=== PATIENT | female | born 1935 | race Caucasian/White ===

== ENCOUNTER 2020-03-16 23:51 | Inpatient (IN) ==
[2020-03-17] MEDS ORDERED: FUROSEMIDE 40 MG/4 ML VIAL IV STA (00:25)
[2020-03-17 00:32] LABS: Basophils # (auto) 0.02 K/uL (0-0.2); Basophils % (auto) 0.2 %; Eosinophils # (auto) 0.54 K/uL (0-0.5); Eosinophils % (auto) 5.2 %; Hematocrit (blood only) 44.4 % (37-47); Hemoglobin 15.2 g/dL (12.0-16.0); Immature Granulocytes # (auto) 0.04 K/uL (0.00-0.02); Immature Granulocytes % (auto) 0.4 %; Lymphocytes # (auto) 3.77 K/uL (1.2-3.4); Lymphocytes % (auto) 36.4 %; Mean Corpuscular Hemoglobin 32.4 pg (25-34); Mean Corpuscular Hgb Conc 34.2 g/dL (32-36); Mean Corpuscular Volume 94.7 fL (80-100); Mean Platelet Volume 9.7 fL (7.4-10.4); Monocytes # (auto) 0.84 K/uL (0.11-0.59); Monocytes % (auto) 8.1 %; Neutrophils # (auto) 5.16 K/uL (1.4-6.5); Neutrophils % (auto) 49.7 %; Platelet Count 196 K/uL (130-400); RDW Coefficient of Variation 12.6 % (11.5-14.5); RDW Standard Deviation 43.7 fL (36.4-46.3); Red Blood Count 4.69 M/uL (4.2-5.4); White Blood Count 10.37 K/uL (4.8-10.8)
[2020-03-17 00:43] LABS: Partial Thromboplastin Time 29.1 Seconds (21.0-31.0); Prothrombin Time 10.6 Seconds (9.0-12.0)
--- NOTE | 2020-03-17 00:55 | Emergency Department Note ---
History of Present Illness General Chief complaint: Cardiac Assessment Stated complaint: COUGH/CHF Time Seen by Provider: 03/16/20 23:53 Source: patient, EMS, RN notes reviewed and old records reviewed Mode of arrival: EMS Limitations: no limitations History of Present Illness Provider complaint: CHF Onset (ago): day(s) 1 Location: chest Maximum Pain Intensity: 0 Current Pain Intensity: 0 Relieved By: + immobilization Exacerbated By: + movement Associated symptoms: + cough and + shortness of breath Treatments prior to arrival: none This is an 84-year-old female who was sent in by her fdc over concerns of the patient is hypoxic at the fdc. Upon arrival to the emergency department the patient is wheezing. She denies any chest pain or shortness of breath. There were no treatments given to the patient prior to arrival. Home Medications Home Medications Medication Instructions Recorded Confirmed Type Delsym Suspension 0 ml PO Q4H PRN 03/17/20 03/17/20 History amlodipine 10 mg PO DAILY 03/17/20 03/17/20 History dextromethorphan-guaifenesin 1 tab PO Q12H 03/17/20 03/17/20 History [Mucinex DM] dextromethorphan-guaifenesin 1 tab PO Q12H PRN 03/17/20 03/17/20 History [Mucinex DM] docusate sodium 100 mg PO BID 03/17/20 03/17/20 History dorzolamide-timolol 1 drp OPR BID 03/17/20 03/17/20 History latanoprost 1 drp OPR HS 03/17/20 03/17/20 History magnesium hydroxide [Milk of 30 ml PO DAILY PRN 03/17/20 03/17/20 History Magnesia] metoprolol tartrate 100 mg PO BID 03/17/20 03/17/20 History multivitamin 1 tab PO DAILY 03/17/20 03/17/20 History multivitamin,rq-jany-luibfmuo 1 tab PO DAILY 03/17/20 03/17/20 History [Therems-M] netarsudil [Rhopressa] 1 drp OPR PM 03/17/20 03/17/20 History omeprazole 20 mg PO HS 03/17/20 03/17/20 History pravastatin 20 mg PO HS 03/17/20 03/17/20 History Allergies Allergy/AdvReac Type Severity Reaction Status Date / Time Iodinated Contrast Media Allergy Intermediate UNKNOWN-MED Verified 03/17/20 00:44 LIST iodine Allergy Intermediate UNKNOWN--MED Verified 03/17/20 00:44 LIST shellfish derived Allergy Intermediate UNKNOWN--MED Verified 03/17/20 00:44 LIST Past Med/Surg History Social History Smoking Status: Never smoker Hx Alcohol Use: No Hx Substance Use: No Preferred Language: Arabic Communication Ability: Effective International Sourcing Manager Required: No Beliefs That Will Affect Care: None Current Living Situation: Personal Care Facility Other Information That Helps Us Care for You: No Feels Safe at Home: Yes Safety Concerns: Feels Safe At This Time Review of Systems A total of 10 systems reviewed and were otherwise negative Physical Exam Vital Signs Vital Signs - 24 hr 03/17/20 00:10 03/17/20 00:31 Temperature 36.8 C Temperature Source Oral Pulse Rate 82 Respiratory Rate 21 Respiratory Depth Normal Blood Pressure 186/86 H Blood Pressure Mean 119 Pulse Oximetry 93 87 L Oxygen Delivery Method Room Air Nasal Cannula Oxygen Flow Rate 0 Sepsis Recent Fever Within 48 Hours No Sepsis New/Unexplained Change in Mental Status No Sepsis Action Taken by Nursing No Action Required Fraction of Inspired Oxygen - Titration 2 Pulse Oximetry Post Tiitration 93 VITAL SIGNS - Vital signs and nursing notes were reviewed. GENERAL - 84-year-old female appearing stated age who is in no acute distress. Communicates well with provider and answers questions appropriately. SKIN - Without rashes. HEAD - NC/AT. EYES - PERRL with EOMI bilaterally. Sclera anicteric. Palpebral conjunctiva pink and moist with no injection noted. EARS - No deformities of external structures noted on gross examination bilaterally. No pain elicited with palpation of the tragus bilaterally. External auditory canals without discharge or otorrhea. Tympanic membranes pearly anderson without retraction or bulging. No fluid or purulent material visualized behind the TM. Handle of malleus, umbo, cone of light, pars tensa/flaccid all easily visualized. NOSE - Midline and without cyanosis. No epistaxis or purulent drainage noted. Septum midline without deviation or septal hematoma noted. MOUTH/OROPHARYNX - Without perioral cyanosis. Buccal mucosa pink and moist and without leukoplakia. Tongue midline with equal elevation of palate bilaterally. No tonsillar hypertrophy, erythema, or exudates noted. dentition noted. NECK - Neck with FROM. Supple to palpation. lymphadenopathy noted. No nuchal rigidity. LUNGS - Chest wall symmetric without accessory muscle use, intercostals retractions, or central cyanosis. Normal vesicular breath sounds CTA B/L. No whe ezes, rales, or rhonchi appreciated. CARDIAC - RRR with S1/S2. No murmur, rubs, or gallops appreciated. ABDOMEN - Abdominal contour without pulsations or visible masses. BS normoactive all four quadrants. No tenderness, palpable masses, hepatosplenomegaly, or ascites noted. EXTREMITIES - No clubbing or peripheral cyanosis. No pretibial edema present. +3/5 radial, posterior tibial, and dorsalis pedis pulses palpated throughout. +5/5 strength noted in UE/LE bilaterally. NEUROLOGIC - Cranial nerves II through XII grossly intact. Sensory intact to light touch throughout. Patellar reflexes +2/4. PSYCH - A&Ox3 and cooperates fully with examiner. Pt is very pleasant and interacts well with examiner. Course Administered Medications Amlodipine Besylate (Amlodipine Besylate 5 Mg Tab) 10 mg PO DAILY STANTON Stop: 04/16/20 08:59 Last Admin: 03/18/20 08:40 Dose: 10 mg Documented by: [id number] Admin: 03/17/20 12:35 Dose: 10 mg Documented by: [id number] Docusate Sodium (Docusate Sodium 100 Mg Cap) 100 mg PO BID STNATON Stop: 04/16/20 08:59 Last Admin: 03/18/20 20:37 Dose: 100 mg Documented by: [id number] Admin: 03/18/20 08:38 Dose: 100 mg Documented by: [id number] Admin: 03/17/20 20:13 Dose: 100 mg Documented by: [id number] Admin: 03/17/20 08:55 Dose: 100 mg Documented by: [id number] Dorzolamide/Timolol (Dorzolamide/Timolol 22.3/6.8mg/Ml 10 Ml Btl) 1 drops OPR BID ST[place]ON Stop: 04/16/20 08:59 Last Admin: 03/18/20 20:32 Dose: 1 drops Documented by: [id number] Admin: 03/18/20 08:38 Dose: 1 drops Documented by: [id number] Admin: 03/17/20 20:13 Dose: 1 drops Documented by: [id number] Admin: 03/17/20 08:56 Dose: 1 drops Documented by: [id number] Doxycycline Hyclate (Doxycycline Hyclate 100 Mg Cap) 100 mg PO BID ST[place]ON Stop: 03/24/20 09:59 Last Admin: 03/18/20 20:35 Dose: 100 mg Documented by: [id number] Admin: 03/18/20 08:41 Dose: 100 mg Documented by: [id number] Admin: 03/17/20 20:15 Dose: 100 mg Documented by: [id number] Admin: 03/17/20 11:29 Dose: 100 mg Documented by: [id number] Enoxaparin Sodium (Enoxaparin Inj 30 Mg/0.3 Ml Syr) 30 mg SQ QAM [place] Stop: 04/16/20 08:59 Last Admin: 03/18/20 08:39 Dose: 30 mg Documented by: [id number] Admin: 03/17/20 08:56 Dose: 30 mg Documented by: [id number] Ipratropium W[place] (Ipratropium [place] Neb Soln 0.02% 2.5 Ml Vial) 0.5 mg INH Q6R [place] Stop: 04/16/20 06:59 Last Admin: 03/19/20 00:08 Dose: 0.5 mg Documented by: [id number] Admin: 03/18/20 19:22 Dose: 0.5 mg Documented by: [id number] Admin: 03/18/20 13:13 Dose: 0.5 mg Documented by: [id number] Admin: 03/18/20 07:14 Dose: 0.5 mg Documented by: [id number] Admin: 03/18/20 01:18 Dose: 0.5 mg Documented by: [id number] Admin: 03/17/20 19:08 Dose: 0.5 mg Documented by: [id number] Admin: 03/17/20 13:13 Dose: 0.5 mg Documented by: [id number] Admin: 03/17/20 07:13 Dose: 0.5 mg Documented by: [id number] Latanoprost (Latanoprost 0.005% Op Soln 2.5 Ml Btl) 1 drops OPR HS [facility] Stop: 04/16/20 20:59 Last Admin: 03/18/20 20:35 Dose: 1 drops Documented by: [id number] Admin: 03/17/20 20:49 Dose: 1 drops Documented by: [id number] Levalbuterol HCl (Levalbuterol 1.25mg/0.5ml Neb) 1.25 mg INH Q6R [place] Stop: 04/16/20 06:59 Last Admin: 03/19/20 00:08 Dose: 1.25 mg Documented by: [id number] Admin: 03/18/20 19:22 Dose: 1.25 mg Documented by: [id number] Admin: 03/18/20 13:13 Dose: 1.25 mg Documented by: [id number] Admin: 03/18/20 07:14 Dose: 1.25 mg Documented by: [id number] Admin: 03/18/20 01:18 Dose: 1.25 mg Documented by: [id number] Admin: 03/17/20 19:08 Dose: 1.25 mg Documented by: [id number] Admin: 03/17/20 13:13 Dose: 1.25 mg Documented by: [id number] Admin: 03/17/20 07:13 Dose: 1.25 mg Documented by: [id number] Metoprolol Tartrate (Metoprolol Tartrate 100 Mg Tab) 100 mg PO BID ST[place] Stop: 04/16/20 08:59 Last Admin: 03/18/20 20:34 Dose: 100 mg Documented by: [id number] Admin: 03/18/20 08:39 Dose: 100 mg Documented by: [id number] Admin: 03/17/20 20:13 Dose: 100 mg Documented by: [id number] Admin: 03/17/20 08:56 Dose: 100 mg Documented by: [id number] Miscellaneous (Netarsudil [Rhopressa]: Order Awaiting Action) 1 ea N/A QS [facility]ON Stop: 04/16/20 07:59 Last Admin: 03/19/20 00:03 Dose: Not Given Documented by: [id number] Admin: 03/18/20 20:33 Dose: Not Given Documented by: [id number] Admin: 03/18/20 08:38 Dose: Not Given Documented by: [id number] Admin: 03/17/20 23:41 Dose: Not Given Documented by: [id number] Admin: 03/17/20 20:07 Dose: Not Given Documented by: [id number] Admin: 03/17/20 08:57 Dose: Not Given Documented by: [id number] Multivitamins (Multivitamin Tab) 1 tab PO DAILY ST[place]ON Stop: 04/16/20 08:59 Last Admin: 03/18/20 08:40 Dose: 1 tab Documented by: [id number] Admin: 03/17/20 08:56 Dose: 1 tab Documented by: [id number] Pantoprazole Sodium (Pantoprazole 40 Mg Tab) 40 mg PO HS ST[place]ON Stop: 04/16/20 20:59 Last Admin: 03/18/20 20:35 Dose: 40 mg Documented by: [id number] Admin: 03/17/20 20:13 Dose: 40 mg Documented by: [id number] Pravastatin Sodium (Pravastatin Sod 20 Mg Tab) 20 mg PO HS [place] Stop: 04/16/20 20:59 Last Admin: 03/18/20 20:34 Dose: 20 mg Documented by: [id number] Admin: 03/17/20 20:15 Dose: 20 mg Documented by: [id number] Prednisone (Prednisone 20 Mg Tab) 20 mg PO DAILY [place] Stop: 03/20/20 09:01 Last Admin: 03/18/20 09:57 Dose: 20 mg Documented by: [id number] Discontinued Medications Albuterol (Albut/Ipratrop 3mg/0.5mg Neb 3 Ml Vial) 3 ml NEB NOW STA Stop: 03/17/20 02:31 Last Admin: 03/17/20 02:55 Dose: 3 ml Documented by: [id number] Amlodipine Besylate (Amlodipine Besylate 5 Mg Tab) 10 mg PO NOW ONE Stop: 03/17/20 03:14 Last Admin: 03/17/20 03:55 Dose: 10 mg Documented by: [id number] Furosemide (Furosemide 40 Mg/4 Ml Vial) 40 mg IV NOW STA Stop: 03/17/20 00:26 Last Admin: 03/17/20 01:10 Dose: 40 mg Documented by: [id number] Piperacillin Sod/Tazobactam Sod (Zosyn) 4.5 gm in 120 mls @ 240 mls/hr IV NOW ONE Stop: 03/17/20 02:48 Last Admin: 03/17/20 02:29 Dose: Not Given Documented by: [id number] Levofloxacin/Dextrose (Levaquin/D5w) 750 mg in 150 mls @ 100 mls/hr IV NOW STA Stop: 03/17/20 03:48 Last Infusion: 03/17/20 03:57 Dose: 0 mls/hr Documented by: [id number] Admin: 03/17/20 02:32 Dose: 100 mls/hr Documented by: [id number] Vancomycin HCl 1,750 mg/ (Sodium Chloride) 535 mls @ 200 mls/hr IV NOW ONE Stop: 03/17/20 04:59 Last Admin: 03/17/20 02:29 Dose: Not Given Documented by: [id number] Dexamethasone (Decadron) 1.5 mls @ 1 mls/min IV NOW STA Stop: 03/17/20 02:30 Last Admin: 03/17/20 03:55 Dose: 1 mls/min Documented by: [id number] Sodium Chloride (Nss 1000ml) 1,000 mls @ 40 mls/hr IV .Q24H ONE Stop: 03/18/20 05:00 Last Infusion: 03/18/20 07:17 Dose: 0 mls/hr Documented by: [id number] Admin: 03/17/20 05:26 Dose: 40 mls/hr Documented by: [id number] Prednisone (Prednisone 10 Mg Tablet) 10 mg PO DAILY ST[place]ON Stop: 03/20/20 09:01 Last Admin: 03/18/20 08:40 Dose: 10 mg Documented by: [id number] Medical Decision Making Differential Diagnosis Reactive airway disease, pneumonia, pneumothorax, COPD, CHF, infections, cardiac ischemia, pulmonary embolism, musculoskeletal, gastrointestinal, as well as other pathologies. Medical Records Attestation: I reviewed the patient's medical records. Home Medications Current Medication List: was personally reviewed by me Laboratory Data Attestation: I reviewed the patient's lab results. Result diagrams: 03/18/20 07:02 03/18/20 07:02 Lab Results 03/17/20 03/17/20 03/17/20 Range/Units 00:10 00:10 00:10 WBC 10.37 (4.8-10.8) K/uL RBC 4.69 (4.2-5.4) M/uL Hgb 15.2 (12.0-16.0) g/dL Hct 44.4 (37-47) % MCV 94.7 (80-100) fL MCH 32.4 (25-34) pg MCHC 34.2 (32-36) g/dL RDW Std Deviation 43.7 (36.4-46.3) fL RDW Coeff of Marlon 12.6 (11.5-14.5) % Plt Count 196 (130-400) K/uL MPV 9.7 (7.4-10.4) fL Immature Gran % (Auto) 0.4 % Neut % (Auto) 49.7 % Lymph % (Auto) 36.4 % Coke % (Auto) 8.1 % Eos % (Auto) 5.2 % Baso % (Auto) 0.2 % Neut # (Auto) 5.16 (1.4-6.5) K/uL Lymph # (Auto) 3.77 H (1.2-3.4) K/uL Coke # (Auto) 0.84 H (0.11-0.59) K/uL Eos # (Auto) 0.54 H (0-0.5) K/uL Baso # (Auto) 0.02 (0-0.2) K/uL Immature Gran # (Auto) 0.04 H (0.00-0.02) K/uL PT 10.6 (9.0-12.0) Seconds INR 1.0 (0.9-1.1) APTT 29.1 (21.0-31.0) Seconds PTT Ratio 1.0 Sodium 140 (136-145) mmol/L Potassium 4.3 (3.5-5.1) mmol/L Chloride 106 (98-107) mmol/L Carbon Dioxide 26 (21-32) mmol/L Anion Gap 8.0 (3-11) BUN 15 (7-18) mg/dl Creatinine 0.96 (0.6-1.2) mg/dl Est Cr Clr Drug Dosing 40.4 ml/min Est GFR ( Amer) 62.1 Est GFR (Non-Af Amer) 53.6 BUN/Creatinine Ratio 16.1 (10-20) Glucose 116 H (70-99) mg/dl Calcium 9.5 (8.5-10.1) mg/dl Magnesium 2.0 (1.8-2.4) mg/dl Total Bilirubin 0.6 (0.2-1) mg/dl AST 22 (15-37) U/L ALT 22 (12-78) U/L Alkaline Phosphatase 68 (45-117) U/L Total Creatine Kinase 71 (26-192) U/L CK-MB (CK-2) < 1.0 (0.5-3.6) ng/ml CK/CKMB % Calc TNP Troponin I < 0.015 (0-0.045) ng/ml NT-Pro-B Natriuret Pep 131 (0-1800) pg/ml Total Protein 7.5 (6.4-8.2) gm/dl Albumin 3.4 (3.4-5.0) gm/dl Globulin 4.1 H (2.5-4.0) gm/dl Albumin/Globulin Ratio 0.8 L (0.9-2) Lipase 179 (73-393) U/L Specimen Hemolysis Urine Color Urine Appearance (Clear) Urine pH (4.5-7.5) Ur Specific Semin[place] (1.000-1.030) Urine Protein (Negative) Urine Glucose (UA) (Negative) Urine Ketones (Negative) Urine Blood (Negative) Urine Nitrite (Negative) Urine Bilirubin (Negative) Urine Urobilinogen (Negative) Ur Leukocyte Esterase (Negative) COVID-19 Eval Order COVID-19 PCR (Negative) 03/17/20 03/17/20 03/17/20 Range/Units 01:06 02:35 02:35 WBC (4.8-10.8) K/uL RBC (4.2-5.4) M/uL Hgb (12.0-16.0) g/dL Hct (37-47) % MCV (80-100) fL MCH (25-34) pg MCHC (32-36) g/dL RDW Std Deviation (36.4-46.3) fL RDW Coeff of Marlon (11.5-14.5) % Plt Count (130-400) K/uL MPV (7.4-10.4) fL Immature Gran % (Auto) % Neut % (Auto) % Lymph % (Auto) % Coke % (Auto) % Eos % (Auto) % Baso % (Auto) % Neut # (Auto) (1.4-6.5) K/uL Lymph # (Auto) (1.2-3.4) K/uL Coke # (Auto) (0.11-0.59) K/uL Eos # (Auto) (0-0.5) K/uL Baso # (Auto) (0-0.2) K/uL Immature Gran # (Auto) (0.00-0.02) K/uL PT (9.0-12.0) Seconds INR (0.9-1.1) APTT (21.0-31.0) Seconds PTT Ratio Sodium (136-145) mmol/L Potassium (3.5-5.1) mmol/L Chloride (98-107) mmol/L Carbon Dioxide (21-32) mmol/L Anion Gap (3-11) BUN (7-18) mg/dl Creatinine (0.6-1.2) mg/dl Est Cr Clr Drug Dosing ml/min Est GFR ( Amer) Est GFR (Non-Af Amer) BUN/Creatinine Ratio (10-20) Glucose (70-99) mg/dl Calcium (8.5-10.1) mg/dl Magnesium (1.8-2.4) mg/dl Total Bilirubin (0.2-1) mg/dl AST (15-37) U/L ALT (12-78) U/L Alkaline Phosphatase (45-117) U/L Total Creatine Kinase (26-192) U/L CK-MB (CK-2) (0.5-3.6) ng/ml CK/CKMB % Calc Troponin I (0-0.045) ng/ml NT-Pro-B Natriuret Pep (0-1800) pg/ml Total Protein (6.4-8.2) gm/dl Albumin (3.4-5.0) gm/dl Globulin (2.5-4.0) gm/dl Albumin/Globulin Ratio (0.9-2) Lipase (73-393) U/L Specimen Hemolysis Urine Color Yellow Urine Appearance Clear (Clear) Urine pH 6.5 (4.5-7.5) Ur Specific [place] 1.012 (1.000-1.030) Urine Protein Negative (Negative) Urine Glucose (UA) Negative (Negative) Urine Ketones Negative (Negative) Urine Blood Negative (Negative) Urine Nitrite Negative (Negative) Urine Bilirubin Negative (Negative) Urine Urobilinogen Negative (Negative) Ur Leukocyte Esterase Negative (Negative) COVID-19 Eval Order Covid19 Done at [facility] COVID-19 PCR NEGATIVE (Negative) Imaging Data Attestation: I personally reviewed and interpreted this imaging study as follows : My Impression: 1 view the chest was interpreted by me shows pulmonary edema present at the lung bases. No evidence of pneumonia Radiologist's Impression: 18 Diagnostics DATE TYPE STATUS REF RANGE/AUTHOR Hx 03/17/20 00:55 YulianaAndrew norris 03/17/20 00:25 Andrew Deluna Eleanor J 84, F0 1935 ADM IN, 2W W252 -1 5ft 76.7kg BMI: 33.0kg/m Search Chart UNKNOWN-MED LIST UNKNOWN--MED LIST UNKNOWN--MED LIST 03/17/20 00:10 ONSET Today 04:04 NF - Not included in interaction checking Trop I WBC Hb Hct Plt PT INR PTT BUN Cr Na K Glu Mg Total Bili Lipase NORMA HILLIARD 84 F 1935 [facility], [place] [phone] CT Scan Report Patient: NORMA HILLIARD Date: 03/17/20 MR#: [id number]: [id number] [facility] Acct ID:[id number]: Date: 1935[facility] Zip: [place] [address] Age: 84Location: 2W Sex: FRoom/Bed: [facility] Att Phy: Chacorta Westfall, MDDiagnosis: RESP FAILURE,COVID NEG,DC ISOL Linda Phy: Dwayne Mojica,Personal Care,IncService Date: 03/17/20 Fam Phy:Interpreting Phy: Andrew Deluna MD Admit Phy: Gage Lopez MD Ordering Phy: Sean Mon MD cc: ~ CT chest wo con CLINICAL HISTORY: Axial COMPARISON STUDY: Chest x-ray dated 03/17/2020 CT DOSE: 683.71 mGy.cm TECHNIQUE: CT of the thorax was performed from the thoracic inlet to the lung bases. Images are reviewed in the axial, sagittal, and coronal planes. IV contrast was not administered for this examination. A dose lowering technique was utilized adhering to the principles of ALARA. FINDINGS: Thyroid: Imaged portions of the thyroid gland are normal in appearance. Thoracic aorta: The thoracic aorta is normal in course and caliber, noting standard 3 vessel arch anatomy. Heart: The heart is normal in size and configuration, without pericardial effusion. Lungs and pleural spaces: There is respiratory motion artifact. There are minimal groundglass opacities within the right upper lobe. There is no lobar consolidation. There is evidence for tracheomalacia with narrowing of the AP diameter of the trachea. There is mild diffuse central bronchial wall thickening. There are no significant pleural effusions. There are minor tree-in-bud opacities within the right lower lobe, likely postinflammatory Mediastinum: There is no evidence of pathologic mediastinal lymphadenopathy Greer: There is no evidence of pathologic hilar adenopathy given the limitations of a noncontrast study. Axilla: There is a left axillary lymphadenopathy. Upper abdomen: Partially visualized upper abdominal viscera is within normal limits. Skeletal structures: There are no lytic or blastic osseous lesions. IMPRESSION: 1. Motion degraded study 2. Tracheomalacia 3. Mild central bronchial wall thickening 4. Minor tree-in-bud opacities in the right lower lobe likely postinflammatory 5. Minor right upper lobe groundglass opacities 6. Enlarged left axillary lymph node ACT 112: Negative or not required by law. Electronically signed by: Andrew Deluna M.D. 03/17/2020 8:46 AM Dictated: 03/17/20 08 Transcribed: 03/17/20 08 [place], [place] [phone] XRay Report Patient: NORMA HILLIARD Date: 03/17/20 MR#: [id number]: [id number] [facility] Acct ID:[id number]: [facility] Zip[facility] [place] [address] Age: 84Location: 2W Sex: FRoom/Bed: W256-2 Att Phy: Chacorta Westfall, MDDiagnosis: RESP FAILURE,COVID NEG,DC ISOL Linda Phy: Dwayne Mojica,Personal Care,IncService Date: 03/17/20 Fam Phy:Interpreting Phy: Andrew Deluna MD Admit Phy: Gage Lopez MD Ordering Phy: Sean Mon MD cc: ~ XR chest 1V portable CLINICAL HISTORY: Atypical chest pain COMPARISON STUDY: 01/13/2010 FINDINGS: The heart is the upper limits of normal in size. There is mild elevation of interstitium raising the possibility of mild pulmonary vascular congestion. There is no lobar consolidation. There are no pleural effusions.[ IMPRESSION: 1. Mild interstitial prominence. Clinical correlation in regards to mild pulmonary vascular congestion is recommended. No evidence of focal pulmonary consolidation ACT 112: Negative or not required by law. Electronically signed by: Andrew Deluna M.D. 03/17/2020 8:05 AM Dictated: 03/17/20803 Transcribed: 03/17/20803 ECG Data Attestation: I personally reviewed and interpreted this ECG as follows: Indication: + SOB/dyspnea Rate (beats per minute): 78 Rhythm: + normal sinus ECG Intervals/blocks: + Left bundle branch block ECG ST segments: no ST depression and no ST elevation Comparison ECG Date: from (09/12/2014) Change: no significant change MDM Narrative Patient was seen and evaluated as above in room C3. Review was performed of nursing notes and vital signs. I did review pertinent previous visits and patient history. After obtaining a thorough history and physical examination the above work up was performed. This is an 84-year-old female who presents the emergency department complaining of shortness of breath. It is felt that the patient is having a COPD exacerbation therefore she was given Solu-Medrol as well as breathing treatments. The patient presents during a period of high-volume and high acuity. She remains on oxygen therefore I did discuss the case with the hosp italist service who did agree to meet the patient. Patient is in agreement with the treatment plan. An order was placed for continuous cardiac monitoring. The monitor shows a rate of 86 with Normal Sinus rhythm. The patient was evaluated during the global COVID-19 pandemic, and that diagnosi s was suspected/considered upon their initial presentation. Their evaluation, treatment and testing was consistent with current guidelines for patients who present with complaints or symptoms that may be related to COVID-19. Impression & Plan Acute hypoxemic respiratory failure, Elevated troponin, Urinary tract infection, Intractable vomiting Discharge Plan Visit Data Chief Complaint: Cardiac Assessment Stated Complaint: COUGH/CHF ED Provider: Sean Mon Discharge Problem: Acute hypoxemic respiratory failure, Elevated troponin, Urinary tract inf ection, Intractable vomiting Patient Disposition: Admitted As Inpatient Discharge Instructions Interventions: ED Discharge Assessment Last Done: 03/17/20 04:12
[2020-03-17 01:08] LABS: Alanine Aminotransferase 22 U/L (12-78); Albumin Globulin Ratio 0.8 (0.9-2); Albumin Level 3.4 gm/dl (3.4-5.0); Alkaline Phosphatase 68 U/L (45-117); BUN Creatinine Ratio 16.1 (10-20); Bilirubin,Total 0.6 mg/dl (0.2-1); Blood Urea Nitrogen 15 mg/dl (7-18); Calcium 9.5 mg/dl (8.5-10.1); Carbon Dioxide 26 mmol/L (21-32); Chloride 106 mmol/L (98-107); Creatine Kinase MB < 1.0 ng/ml (0.5-3.6); Creatinine Clr Calc Pharmacy 40.4 ml/min; Est GFR (African American) 62.1; Est GFR (Non-African American) 53.6; Globulin 4.1 gm/dl (2.5-4.0); Glucose 116 mg/dl (70-99); Lipase 179 U/L (73-393); NT Pro B Type Natriuretic Pept 131 pg/ml (0-1800); Sodium 140 mmol/L (136-145); Total Protein 7.5 gm/dl (6.4-8.2); Troponin I < 0.015 ng/ml (0-0.045)
[2020-03-17 01:20] LABS: Potassium 4.3 mmol/L (3.5-5.1)
[2020-03-17 01:23] LABS: Bilirubin Urine Negative (Negative); Blood Urine Negative (Negative); Color Urine Yellow; Glucose Urine UA Negative (Negative); Ketones Urine Negative (Negative); Leukocyte Esterase Urine Negative (Negative); Nitrite Urine Negative (Negative); Protein Urine Negative (Negative); Specific Gravity Urine 1.012 (1.000-1.030); Urobilinogen Urine Negative (Negative); pH Urine 6.5 (4.5-7.5)
[2020-03-17 01:29] LABS: Appearance Urine Clear (Clear)
[2020-03-17 01:37] LABS: Aspartate Aminotransferase 22 U/L (15-37); Creatine Kinase 71 U/L (26-192)
[2020-03-17] MEDS ORDERED: LEVOFLOXACIN/D5W 750 MG/150 ML BAG IV STA (02:19)
[2020-03-17] MEDS ORDERED: PIPERACILLIN/TAZOBACTAM 4.5 GM/120 ML BAG IV ONE (02:19)
[2020-03-17] MEDS ORDERED: VANCOMYCIN CONSULT ACTIVE PRN (02:19)
[2020-03-17] MEDS ORDERED: PIPERACILL/TAZOBAC CONSULT ACTIVE PRN (02:19)
[2020-03-17] MEDS ORDERED: VANCOMYCIN HCL 1,750 MG in SODIUM CHLORIDE 0.9% 500 ML IV ONE (02:19)
[2020-03-17] MEDS ORDERED: dexAMETHasone 1.5 ML IV STA (02:29)
[2020-03-17] MEDS ORDERED: ALBUT/IPRATROP 3MG/0.5MG NEB 3 ML VIAL NEB STA (02:30)
[2020-03-17] MEDS ORDERED: AMLODIPINE BESYLATE 5 MG TAB PO ONE (03:13)
--- NOTE | 2020-03-17 03:14 | History & Physical Report ---
Date of Service March 17, 2020 Assessment & Plan (1) Acute hypoxemic respiratory failure: Secondary to viral bronchitis No sepsis hypertension elevated secondary to illness, anxiety hyperlipidemia on statin Rx Incidental finding of left axillary adenopathy on CT ? Breast cancer recurrence hx breast cancer status post surgery chemotherapy Medical telemetry Supplemental O2 Baseline ABG Decadron, nebs stat for viral bronchitis presenting with bronchospasm and hypoxemia Follow official CT read regarding left axillary adenopathy and arrange follow-up with patient [facility] oncologist (Dr. Bunch) if work-up indicated and patient interested. PT OT eval DVT prophylaxis. Lovenox subcu DNR Patient's niece requesting updates for providers. Ms. whittington, contact #[phone]. Text document was generated using [email or web address] voice recognition software. It may contain grammatical or spelling errors. Kindly contact undersigned for clarification of any documentation item in question. History of Present Illness Chief Complaint: Low oxygen, CHF on x-ray Primary Care Provider: Dr. Guzman History obtained from patient, family, and records. Medical history significant for hypertension, hyperlipidemia, chronic LBBB, breast cancer status post surgery chemotherapy, paraproteinemia as per records, PVD as per records, history of poliomyelitis. Last confinement September 2014 for generalized weakness and UTI. Last week patient developed cough symptoms productive of white sputum attributed to possible sinusitis. Worsening symptoms in the last few days with shortness of breath. No fever, no chills, no chest pain. Denies unusual fluid retention or leg swelling. Yesterday patient noted by personal senior living provider to have a lot of wheezing on auscultation. Noted to be hypoxemic at personal senior living. Outpatient CXR showed mild CHF. Patient sent to the ER for evaluation. IV Lasix given at the ER for possible CHF. Levaquin given at the ER. Medical History as above Surgical History : Bilateral mastectomy, cataract surgery, hip replacement Family History : Heart disease, skin cancer Personal/Social history : Non-smoker, no EtOH intake, retired business banker, personal-senior living resident Allergies Allergy/AdvReac Type Severity Reaction Status Date / Time Iodinated Contrast Media Allergy Intermediate UNKNOWN-MED Verified 03/17/20 00:44 LIST iodine Allergy Intermediate UNKNOWN--MED Verified 03/17/20 00:44 LIST shellfish derived Allergy Intermediate UNKNOWN--MED Verified 03/17/20 00:44 LIST Home Medications Home Medications Medication Instructions Recorded Confirmed Type Delsym Suspension 0 ml PO Q4H PRN 03/17/20 03/17/20 History amlodipine 10 mg PO DAILY 03/17/20 03/17/20 History dextromethorphan-guaifenesin 1 tab PO Q12H 03/17/20 03/17/20 History [Mucinex DM] dextromethorphan-guaifenesin 1 tab PO Q12H PRN 03/17/20 03/17/20 History [Mucinex DM] docusate sodium 100 mg PO BID 03/17/20 03/17/20 History dorzolamide-timolol 1 drp OPR BID 03/17/20 03/17/20 History latanoprost 1 drp OPR HS 03/17/20 03/17/20 History magnesium hydroxide [Milk of 30 ml PO DAILY PRN 03/17/20 03/17/20 History Magnesia] metoprolol tartrate 100 mg PO BID 03/17/20 03/17/20 History multivitamin 1 tab PO DAILY 03/17/20 03/17/20 History multivitamin,xx-zakq-blbynwny 1 tab PO DAILY 03/17/20 03/17/20 History [Therems-M] netarsudil [Rhopressa] 1 drp OPR PM 03/17/20 03/17/20 History omeprazole 20 mg PO HS 03/17/20 03/17/20 History pravastatin 20 mg PO HS 03/17/20 03/17/20 History Past Med/Surg History Social History Smoking Status: Never smoker Hx Alcohol Use: No Hx Substance Use: No Preferred Language: [place] Islander Communication Ability: Effective Accounting Software Specialist Required: No Beliefs That Will Affect Care: None Current Living Situation: Personal Care Facility Other Information That Helps Us Care for You: No Feels Safe at Home: Yes Safety Concerns: Feels Safe At This Time Review of Systems Review of Systems: As per HPI, all 10 systems reviewed, all other ROS negative Physical Exam Physical Exam: GENERAL: Slightly uncomfortable, slightly anxious, obese, no respiratory distress SKIN: Normal color, warm HEENT: Bespectacled, [place] palpebral conjunctivae, no ptosis, dry buccal mucosa, nasal cannula in place NECK : Supple, short neck, no tenderness CHEST : Decreased breath sounds, occasional expiratory wheezes, no tenderness HEART : RRR, no obvious murmurs ABDOMEN: Some distention, nontender EXTREMITIES : No LE swelling, no LE tenderness NEUROLOGIC : Coherent, no facial asymmetry, no other gross focality Results & Data Results & Data ([facility]) Vital Signs (Past 12 Hours) Vital Signs Temp Pulse Pulse Resp BP Pulse Ox 03/17/20 02:56 76 18 96 03/17/20 02:31 71 15 172/74 H 96 03/17/20 01:30 72 18 148/75 H 95 03/17/20 01:01 82 19 176/99 H 95 03/17/20 00:31 87 L 03/17/20 00:30 74 25 H 158/88 H 96 03/17/20 00:10 36.8 C 82 21 186/86 H 93 03/17/20 00:00 82 22 177/86 H 96 Laboratory Results Laboratory Results WBC 10.37 K/uL (4.8-10.8) 03/17/20 00:10 RBC 4.69 M/uL (4.2-5.4) 03/17/20 00:10 Hgb 15.2 g/dL (12.0-16.0) 03/17/20 00:10 Hct 44.4 % (37-47) 03/17/20 00:10 MCV 94.7 fL (80-100) 03/17/20 00:10 MCH 32.4 pg (25-34) 03/17/20 00:10 MCHC 34.2 g/dL (32-36) 03/17/20 00:10 RDW Std Deviation 43.7 fL (36.4-46.3) 03/17/20 00:10 RDW Coeff of Marlon 12.6 % (11.5-14.5) 03/17/20 00:10 Plt Count 196 K/uL (130-400) 03/17/20 00:10 MPV 9.7 fL (7.4-10.4) 03/17/20 00:10 Immature Gran % (Auto) 0.4 % 03/17/20 00:10 Neut % (Auto) 49.7 % 03/17/20 00:10 Lymph % (Auto) 36.4 % 03/17/20 00:10 [place] % (Auto) 8.1 % 03/17/20 00:10 Eos % (Auto) 5.2 % 03/17/20 00:10 Baso % (Auto) 0.2 % 03/17/20 00:10 Neut # (Auto) 5.16 K/uL (1.4-6.5) 03/17/20 00:10 Lymph # (Auto) 3.77 K/uL (1.2-3.4) H 03/17/20 00:10 [place] # (Auto) 0.84 K/uL (0.11-0.59) H 03/17/20 00:10 Eos # (Auto) 0.54 K/uL (0-0.5) H 03/17/20 00:10 Baso # (Auto) 0.02 K/uL (0-0.2) 03/17/20 00:10 Immature Gran # (Auto) 0.04 K/uL (0.00-0.02) H 03/17/20 00:10 PT 10.6 Seconds (9.0-12.0) 03/17/20 00:10 INR 1.0 (0.9-1.1) 03/17/20 00:10 APTT 29.1 Seconds (21.0-31.0) 03/17/20 00:10 PTT Ratio 1.0 03/17/20 00:10 Sodium 140 mmol/L (136-145) 03/17/20 00:10 Potassium 4.3 mmol/L (3.5-5.1) 03/17/20 00:10 Chloride 106 mmol/L (98-107) 03/17/20 00:10 Carbon Dioxide 26 mmol/L (21-32) 03/17/20 00:10 Anion Gap 8.0 (3-11) 03/17/20 00:10 BUN 15 mg/dl (7-18) 03/17/20 00:10 Creatinine 0.96 mg/dl (0.6-1.2) 03/17/20 00:10 Est Cr Clr Drug Dosing 40.4 ml/min 03/17/20 00:10 Est GFR ( Amer) 62.1 03/17/20 00:10 Est GFR (Non-Af Amer) 53.6 03/17/20 00:10 BUN/Creatinine Ratio 16.1 (10-20) 03/17/20 00:10 Glucose 116 mg/dl (70-99) H 03/17/20 00:10 Calcium 9.5 mg/dl (8.5-10.1) 03/17/20 00:10 Total Bilirubin 0.6 mg/dl (0.2-1) 03/17/20 00:10 AST 22 U/L (15-37) 03/17/20 00:10 ALT 22 U/L (12-78) 03/17/20 00:10 Alkaline Phosphatase 68 U/L (45-117) 03/17/20 00:10 Total Creatine Kinase 71 U/L (26-192) 03/17/20 00:10 CK-MB (CK-2) < 1.0 ng/ml (0.5-3.6) 03/17/20 00:10 CK/CKMB % Calc TNP 03/17/20 00:10 Troponin I < 0.015 ng/ml (0-0.045) 03/17/20 00:10 NT-Pro-B Natriuret Pep 131 pg/ml (0-1800) 03/17/20 00:10 Total Protein 7.5 gm/dl (6.4-8.2) 03/17/20 00:10 Albumin 3.4 gm/dl (3.4-5.0) 03/17/20 00:10 Globulin 4.1 gm/dl (2.5-4.0) H 03/17/20 00:10 Albumin/Globulin Ratio 0.8 (0.9-2) L 03/17/20 00:10 Lipase 179 U/L (73-393) 03/17/20 00:10 Specimen Hemolysis 03/17/20 00:10 Urine Color Yellow 03/17/20 01:06 Urine Appearance Clear (Clear) 03/17/20 01:06 Urine pH 6.5 (4.5-7.5) 03/17/20 01:06 Ur Specific [place] 1.012 (1.000-1.030) 03/17/20 01:06 Urine Protein Negative (Negative) 03/17/20 01:06 Urine Glucose (UA) Negative (Negative) 03/17/20 01:06 Urine Ketones Negative (Negative) 03/17/20 01:06 Urine Blood Negative (Negative) 03/17/20 01:06 Urine Nitrite Negative (Negative) 03/17/20 01:06 Urine Bilirubin Negative (Negative) 03/17/20 01:06 Urine Urobilinogen Negative (Negative) 03/17/20 01:06 Ur Leukocyte Esterase Negative (Negative) 03/17/20 01:06 COVID-19 Eval Order Covid19 Done at [facility] 03/17/20 02:[address] chest initial read: No focal consolidation. Small hiatal hernia. Mild volume loss of the lungs. Mildly enlarged left axillary lymph node measuring 1.4 cm. Consider nonemergent diagnostic breast evaluation if clinically warranted. EKG as per my interpretation : Rate 80, NSR, LBBB,
[2020-03-17] MEDS ORDERED: PROMETHAZINE HCL 12.5 MG in SODIUM CHLORIDE 0.9% 50 ML IV PRN (05:01)
[2020-03-17] MEDS ORDERED: TRAMADOL HCL 50 MG TABLET PO PRN (05:01)
[2020-03-17] MEDS ORDERED: ACETAMINOPHEN 325 MG TAB PO PRN (05:01)
[2020-03-17] MEDS ORDERED: SODIUM CHLORIDE 0.9% 1000ML 1,000 ML IV ONE (05:01)
[2020-03-17] MEDS ORDERED: MAGNESIUM HYDROXIDE SUSP 30 ML UDC PO PRN (05:01)
[2020-03-17 05:44] LABS: Base Excess ABG 2.8 mEq/L (-9-1.8); HCO3 ABG 28 mmol/L (19-24); PCO2 ABG 42 mmHg (35-46); PO2 ABG 72 mmHg (80-95); pH ABG 7.43 (7.35-7.45)
[2020-03-17 05:48] LABS: Allen Test Pos (Pos)
[2020-03-17] MEDS ORDERED: XOPENEX/ATROVENT 1.25mg/0.5MG NEB COMBO NEB SCH (07:00)
[2020-03-17] MEDS: LEVALBUTEROL 1.25MG/0.5ML NEB INH SCH ×3 (07:13→19:08)
[2020-03-17] MEDS: IPRATROPIUM BROMIDE NEB SOLN 0.02% 2.5 ML VIAL INH SCH ×3 (07:13→19:08)
--- NOTE | 2020-03-17 08:06 | XRay Report ---
XR chest 1V portable CLINICAL HISTORY: Atypical chest pain COMPARISON STUDY: 01/13/2010 FINDINGS: The heart is the upper limits of normal in size. There is mild elevation of interstitium ra ising the possibility of mild pulmonary vascular congestion. There is no lobar consolidation. There a re no pleural effusions.[ IMPRESSION: 1. Mild interstitial prominence. Clinical correlation in regards to mild pulmonary vascular congestio n is recommended. No evidence of focal pulmonary consolidation ACT 112: Negative or not required by law. Electronically signed by: Andrew Deluna M.D. 03/17/2020 8:05 AM
--- NOTE | 2020-03-17 08:48 | CT Scan Report ---
CT chest wo con CLINICAL HISTORY: Axial COMPARISON STUDY: Chest x-ray dated 03/17/2020 CT DOSE: 683.71 mGy.cm TECHNIQUE: CT of the thorax was performed from the thoracic inlet to the lung bases. Images are revi ewed in the axial, sagittal, and coronal planes. IV contrast was not administered for this examinatio n. A dose lowering technique was utilized adhering to the principles of ALARA. FINDINGS: Thyroid: Imaged portions of the thyroid gland are normal in appearance. Thoracic aorta: The thoracic aorta is normal in course and caliber, noting standard 3 vessel arch mo[place]. Heart: The heart is normal in size and configuration, without pericardial effusion. Lungs and pleural spaces: There is respiratory motion artifact. There are minimal groundglass opaciti es within the right upper lobe. There is no lobar consolidation. There is evidence for tracheomalacia with narrowing of the AP diameter of the trachea. There is mild diffuse central bronchial wall thick ening. There are no significant pleural effusions. There are minor tree-in-bud opacities within the r ight lower lobe, likely postinflammatory Mediastinum: There is no evidence of pathologic mediastinal lymphadenopathy [place]: There is no evidence of pathologic hilar adenopathy given the limitations of a noncontrast stud y. Axilla: There is a left axillary lymphadenopathy. Upper abdomen: Partially visualized upper abdominal viscera is within normal limits. Skeletal structures: There are no lytic or blastic osseous lesions. IMPRESSION: 1. Motion degraded study 2. Tracheomalacia 3. Mild central bronchial wall thickening 4. Minor tree-in-bud opacities in the right lower lobe likely postinflammatory 5. Minor right upper lobe groundglass opacities 6. Enlarged left axillary lymph node ACT 112: Negative or not required by law. Electronically signed by: Andrew Deluna M.D. 03/17/2020 8:46 AM
[2020-03-17] MEDS: DOCUSATE SODIUM 100 MG CAP PO SCH ×2 (08:55→20:13)
[2020-03-17] MEDS: ENOXAPARIN INJ 30 MG/0.3 ML SYR SQ SCH (08:56)
[2020-03-17] MEDS: DORZOLAMIDE/TIMOLOL 22.3/6.8MG/ML 10 ML BTL OPR SCH ×2 (08:56→20:13)
[2020-03-17] MEDS: METOPROLOL TARTRATE 100 MG TAB PO SCH ×2 (08:56→20:13)
[2020-03-17] MEDS: MULTIVITAMIN TAB PO SCH (08:56)
--- NOTE | 2020-03-17 10:20 | Electrocardiogram Report ---
Test Reason : Blood Pressure : / mmHG Vent. Rate : 078 BPM Atrial Rate : 078 BPM P-R Int : 192 ms QRS Dur : 144 ms QT Int : 424 ms P-R-T Axes : 064 026 096 degrees QTc Int : 483 ms Normal sinus rhythm Left bundle branch block Abnormal ECG When compared with ECG of 12-SEP-2014 20:09, No significant change was found Confirmed by Sam Spicer ([id number]) on 03/17/2020 10:20:11 AM Referred By: Jazmín Rice [place] Confirmed By:Sam Spicer
[2020-03-17] MEDS: DOXYCYCLINE HYCLATE 100 MG CAP PO SCH ×2 (11:29→20:15)
[2020-03-17 11:52] LABS: Adenovirus PCR Not Detected (NotDetected); Bordetella parapertussis PCR Not Detected (NotDetected); Bordetella pertussis PCR Not Detected (NotDetected); Chlamydia pneumoniae PCR Not Detected (NotDetected); Coronavirus 229E PCR Not Detected (NotDetected); Coronavirus CoV-2 (COVID19)PCR Not Detected (NotDetected); Coronavirus HKU1 PCR Not Detected (NotDetected); Coronavirus NL63 PCR Not Detected (NotDetected); Coronavirus OC43PCR Not Detected (NotDetected); Human Metapneumovirus PCR Not Detected (NotDetected); Influenza A PCR Not Detected (NotDetected); Influenza B PCR Not Detected (NotDetected); Mycoplasma pneumoniae PCR Not Detected (NotDetected); Parainfluenza Virus 1 PCR Not Detected (NotDetected); Parainfluenza Virus 2 PCR Not Detected (NotDetected); Parainfluenza Virus 3 PCR Not Detected (NotDetected); Parainfluenza Virus 4 PCR Not Detected (NotDetected); Respiratory Syncytial VirusPCR Not Detected (NotDetected)
[2020-03-17 11:57] LABS: Rhinovirus/Enterovirus PCR DETECTED (NotDetected)
[2020-03-17] MEDS: AMLODIPINE BESYLATE 5 MG TAB PO SCH (12:35)
--- NOTE | 2020-03-17 14:52 | Hospitalist Progress Note ---
Date of Service March 17, 2020 Assessment & Plan (1) Acute hypoxemic respiratory failure: Acute bronchitis--viral No signs of sepsis Hypoxia --CT chest:Motion degraded study. Tracheomalacia. Mild central bronchial wall thickening. Minor tree-in-bud opacities in the right lower lobe likely postinflammatory. Minor right upper lobe groundglass opacities. Enlarged left axillary lymph node --Biofire: Rhino/Entero Virus --COVID-19 PCR: Negative --Normal Procalcitonin -- Received Dexamethasone --Started on Doxycycline --Continue Low dose steroids --Wean off of supplemental oxygen as able Hypertension Bp slightly elevated Continue amlodipine, metoprolol Monitor Hyperlipidemia Continue Statin Left axillary adenopathy on CT H/O breast Cancer S/P chemotherapy, surgery Informed patient about CT findings Prefers no further investigations Advised patient to follow-up as outpatient DVT Px: Lovenox SQ Code Status DNI/DNR Disposition PT/OT prior to discharge Admission and Anticipated Discharge Date Admission Date: March 17, 2020 Subjective Patient is seen and examined at bedside Reports cough Denies shortness of breath, dizziness, nausea, abdominal pain, chest pain Requiring minimal supplemental oxygen to maintain saturations Offers no other complaints Review of Systems Review of Systems: All systems reviewed & are unremarkable except as noted in HPI & below Physical Exam Physical Exam: Physical Exam: Vitals signs as noted above General Appearance:Elderly, no apparent distress Head: normocephalic, Atraumatic Eyes: normal inspection, EOMI Neck: supple, Trachea midline Respiratory/Chest: Decreased breath sounds, +Basal crackles Cardiovascular: S1, S2, No murmur Abdomen/GI:Soft, Non tender, Bowel sounds present Extremities/Musculoskelatal:normal inspection, R leg Polio, Left LE edema Neurologic/Psych:AAOX3, grossly no focal neurological deficits Skin: normal color, warm Results & Data Results & Data ([facility]) Vital Signs (Past 12 Hours) Vital Signs Temp Pulse Pulse Resp BP BP Pulse Ox 03/17/20 13:15 76 16 94 03/17/20 11:28 36.6 C 74 18 148/72 H 93 03/17/20 07:51 36.5 C 74 20 142/77 H 95 03/17/20 07:33 71 03/17/20 07:13 69 16 95 03/17/20 05:21 36.5 C 69 70 16 165/78 H 94 03/17/20 04:00 74 19 122/69 94 03/17/20 03:30 72 21 136/72 93 03/17/20 02:56 76 18 96 Laboratory Results Short CBC 03/17/20 Range/Units 00:10 WBC 10.37 (4.8-10.8) K/uL Hgb 15.2 (12.0-16.0) g/dL Hct 44.4 (37-47) % Plt Count 196 (130-400) K/uL BMP 03/17/20 00:10 Sodium 140 Potassium 4.3 Chloride 106 Carbon Dioxide 26 BUN 15 Creatinine 0.96 Glucose 116 H Calcium 9.5 Cardiac Enzymes 03/17/20 Range/Units 00:10 Total Creatine Kinase 71 (26-192) U/L CK-MB (CK-2) < 1.0 (0.5-3.6) ng/ml Troponin I < 0.015 (0-0.045) ng/ml Liver Function 03/17/20 Range/Units 00:10 Total Bilirubin 0.6 (0.2-1) mg/dl AST 22 (15-37) U/L ALT 22 (12-78) U/L Alkaline Phosphatase 68 (45-117) U/L Albumin 3.4 (3.4-5.0) gm/dl Urine 03/17/20 Range/Units 01:06 Urine Color Yellow Urine Appearance Clear (Clear) Urine pH 6.5 (4.5-7.5) Ur Specific [place] 1.012 (1.000-1.030) Urine Protein Negative (Negative) Urine Glucose (UA) Negative (Negative)
[2020-03-17] MEDS: PANTOprazole 40 MG TAB PO SCH (20:13)
[2020-03-17] MEDS: PRAVASTATIN SOD 20 MG TAB PO SCH (20:15)
[2020-03-17] MEDS ORDERED: Nursing to Pharmacy Communication SCH (20:30)
[2020-03-17] MEDS: LATANOPROST 0.005% OP SOLN 2.5 ML BTL OPR SCH (20:49)
[2020-03-18] MEDS: LEVALBUTEROL 1.25MG/0.5ML NEB INH SCH ×4 (01:18→19:22)
[2020-03-18] MEDS: IPRATROPIUM BROMIDE NEB SOLN 0.02% 2.5 ML VIAL INH SCH ×4 (01:18→19:22)
[2020-03-18 07:42] LABS: Basophils # (auto) 0.02 K/uL (0-0.2); Basophils % (auto) 0.2 %; Eosinophils # (auto) 0.12 K/uL (0-0.5); Eosinophils % (auto) 1.3 %; Hematocrit (blood only) 42.7 % (37-47); Hemoglobin 14.4 g/dL (12.0-16.0); Immature Granulocytes # (auto) 0.03 K/uL (0.00-0.02); Immature Granulocytes % (auto) 0.3 %; Lymphocytes # (auto) 3.22 K/uL (1.2-3.4); Lymphocytes % (auto) 34.6 %; Mean Corpuscular Hemoglobin 32.4 pg (25-34); Mean Corpuscular Hgb Conc 33.7 g/dL (32-36); Mean Corpuscular Volume 96.2 fL (80-100); Mean Platelet Volume 9.7 fL (7.4-10.4); Monocytes # (auto) 0.99 K/uL (0.11-0.59); Monocytes % (auto) 10.6 %; Neutrophils # (auto) 4.93 K/uL (1.4-6.5); Platelet Count 208 K/uL (130-400); RDW Coefficient of Variation 12.8 % (11.5-14.5); RDW Standard Deviation 44.5 fL (36.4-46.3); Red Blood Count 4.44 M/uL (4.2-5.4); White Blood Count 9.31 K/uL (4.8-10.8)
[2020-03-18 08:19] LABS: BUN Creatinine Ratio 19.7 (10-20); Calcium 9.7 mg/dl (8.5-10.1); Creatinine Clr Calc Pharmacy 36.3 ml/min; Est GFR (African American) 58.4; Est GFR (Non-African American) 50.4; Magnesium 2.1 mg/dl (1.8-2.4)
[2020-03-18] MEDS: DOCUSATE SODIUM 100 MG CAP PO SCH ×2 (08:38→20:37)
[2020-03-18] MEDS: DORZOLAMIDE/TIMOLOL 22.3/6.8MG/ML 10 ML BTL OPR SCH ×2 (08:38→20:32)
[2020-03-18] MEDS: METOPROLOL TARTRATE 100 MG TAB PO SCH ×2 (08:39→20:34)
[2020-03-18] MEDS: ENOXAPARIN INJ 30 MG/0.3 ML SYR SQ SCH (08:39)
[2020-03-18] MEDS: AMLODIPINE BESYLATE 5 MG TAB PO SCH (08:40)
[2020-03-18] MEDS: MULTIVITAMIN TAB PO SCH (08:40)
[2020-03-18] MEDS: DOXYCYCLINE HYCLATE 100 MG CAP PO SCH ×2 (08:41→20:35)
[2020-03-18] MEDS ORDERED: predniSONE 10 MG TABLET PO SCH (09:00)
[2020-03-18] MEDS: predniSONE 20 MG TAB PO SCH (09:57)
--- NOTE | 2020-03-18 14:43 | Hospitalist Progress Note ---
Date of Service March 18, 2020 Assessment & Plan (1) Acute hypoxemic respiratory failure: Acute bronchitis--viral No signs of sepsis Hypoxia --CT chest:Motion degraded study. Tracheomalacia. Mild central bronchial wall thickening. Minor tree-in-bud opacities in the right lower lobe likely postinflammatory. Minor right upper lobe groundglass opacities. Enlarged left axillary lymph node --Biofire: Rhino/Entero Virus --COVID-19 PCR: Negative --Normal Procalcitonin -- Received Dexamethasone --Continue Doxycycline --Continue prednisone taper --Saturating low 90s on room air Hypertension Bp stable Continue amlodipine, metoprolol Monitor Hyperlipidemia Continue Statin Left axillary adenopathy on CT H/O breast Cancer S/P chemotherapy, surgery Informed patient about CT findings Prefers no further investigations Advised patient to follow-up as outpatient DVT Px: Lovenox SQ Code Status DNI/DNR Disposition Expected discharge home when medically stable Admission and Anticipated Discharge Date Admission Date: March 17, 2020 Subjective Patient is seen and examined at bedside States feeling better today Reports minimal cough with expectoration Denies chest pain, SOB, dizziness, nausea, abdominal pain No new complaints Saturating low 90s on room air Review of Systems Review of Systems: All systems reviewed & are unremarkable except as noted in HPI & below Physical Exam Physical Exam: Physical Exam: Vitals signs as noted above General Appearance:Elderly, no apparent distress Head: normocephalic, Atraumatic Eyes: normal inspection, EOMI Neck: supple, Trachea midline Respiratory/Chest: Decreased breath sounds, CTA Cardiovascular: S1, S2, No murmur Abdomen/GI:Soft, Non tender, Bowel sounds present Extremities/Musculoskelatal:normal inspection, R leg Polio, Left LE edema Neurologic/Psych:AAOX3, grossly no focal neurological deficits Skin: normal color, warm Results & Data Results & Data ([facility]) Vital Signs (Past 12 Hours) Vital Signs Temp Pulse Pulse Resp BP Pulse Ox 03/18/20 13:15 76 20 92 03/18/20 11:15 36.5 C 69 20 128/70 90 03/18/20 08:00 59 L 03/18/20 07:32 36.4 C L 80 20 136/78 90 03/18/20 07:16 80 20 92 03/18/20 04:22 36.6 C 81 20 126/71 94 Laboratory Results Short CBC 03/18/20 Range/Units 07:02 WBC 9.31 (4.8-10.8) K/uL Hgb 14.4 (12.0-16.0) g/dL Hct 42.7 (37-47) % Plt Count 208 (130-400) K/uL BMP 03/18/20 07:02 Sodium 142 Potassium 4.0 Chloride 109 H Carbon Dioxide 28 BUN 20 H Creatinine 1.01 Glucose 92 Calcium 9.7
[2020-03-18] MEDS: PRAVASTATIN SOD 20 MG TAB PO SCH (20:34)
[2020-03-18] MEDS: PANTOprazole 40 MG TAB PO SCH (20:35)
[2020-03-18] MEDS: LATANOPROST 0.005% OP SOLN 2.5 ML BTL OPR SCH (20:35)
[2020-03-19] MEDS: IPRATROPIUM BROMIDE NEB SOLN 0.02% 2.5 ML VIAL INH SCH ×4 (00:08→18:58)
[2020-03-19] MEDS: LEVALBUTEROL 1.25MG/0.5ML NEB INH SCH ×4 (00:08→18:58)
[2020-03-19] MEDS: DORZOLAMIDE/TIMOLOL 22.3/6.8MG/ML 10 ML BTL OPR SCH ×2 (08:12→20:40)
[2020-03-19] MEDS: DOXYCYCLINE HYCLATE 100 MG CAP PO SCH ×2 (08:13→20:38)
[2020-03-19] MEDS: predniSONE 20 MG TAB PO SCH (08:13)
[2020-03-19] MEDS: METOPROLOL TARTRATE 100 MG TAB PO SCH ×2 (08:13→20:38)
[2020-03-19] MEDS: MULTIVITAMIN TAB PO SCH (08:13)
[2020-03-19] MEDS: AMLODIPINE BESYLATE 5 MG TAB PO SCH (08:13)
[2020-03-19] MEDS: ENOXAPARIN INJ 30 MG/0.3 ML SYR SQ SCH (08:13)
[2020-03-19] MEDS: DOCUSATE SODIUM 100 MG CAP PO SCH ×2 (08:19→20:42)
[2020-03-19] MEDS ORDERED: predniSONE 10 MG TABLET PO ONE (11:15)
--- NOTE | 2020-03-19 14:58 | Hospitalist Progress Note ---
Date of Service March 19, 2020 Assessment & Plan (1) Acute hypoxemic respiratory failure: Acute bronchitis--viral No signs of sepsis Hypoxia --CT chest:Motion degraded study. Tracheomalacia. Mild central bronchial wall thickening. Minor tree-in-bud opacities in the right lower lobe likely postinflammatory. Minor right upper lobe groundglass opacities. Enlarged left axillary lymph node --Biofire: Rhino/Entero Virus --COVID-19 PCR: Negative --Normal Procalcitonin -- Received Dexamethasone --Continue Doxycycline --Continue prednisone taper --Saturating low 90s on room air --May need 2 step prior discharge --Will give extra 10mg prednisone today Hypertension Bp stable Continue amlodipine, metoprolol Monitor Hyperlipidemia Continue Statin Left axillary adenopathy on CT H/O breast Cancer S/P chemotherapy, surgery Informed patient about CT findings Prefers no further investigations Advised patient to follow-up as outpatient DVT Px: Lovenox SQ Code Status DNI/DNR Disposition Expected discharge home when medically stable Admission and Anticipated Discharge Date Admission Date: March 17, 2020 Subjective Patient is seen and examined at bedside Reports cough with minimal expectoration No other complaints Denies chest pain, SOB, dizziness, nausea, abdominal pain May need 2 step prior to discharge Saturating low 90s on room air Review of Systems Review of Systems: All systems reviewed & are unremarkable except as noted in HPI & below Physical Exam Physical Exam: Physical Exam: Vitals signs as noted above General Appearance:Elderly, no apparent distress Head: normocephalic, Atraumatic Eyes: normal inspection, EOMI Neck: supple, Trachea midline Respiratory/Chest: Decreased breath sounds, CTA Cardiovascular: S1, S2, No murmur Abdomen/GI:Soft, Non tender, Bowel sounds present Extremities/Musculoskelatal:normal inspection, R leg Polio, Left LE edema Neurologic/Psych:AAOX3, grossly no focal neurological deficits Skin: normal color, warm Results & Data Results & Data ([facility]) Vital Signs (Past 12 Hours) Vital Signs Temp Pulse Pulse Resp BP Pulse Ox 03/19/20 14:39 36.7 C 76 16 117/65 90 03/19/20 13:00 84 18 92 03/19/20 10:53 36.7 C 73 16 134/70 90 03/19/20 07:15 36.4 C L 77 16 168/73 H 90 03/19/20 07:03 81 18 90 03/19/20 04:04 36.7 C 78 20 133/66 90
[2020-03-19] MEDS: PRAVASTATIN SOD 20 MG TAB PO SCH (20:39)
[2020-03-19] MEDS: PANTOprazole 40 MG TAB PO SCH (20:39)
[2020-03-19] MEDS: LATANOPROST 0.005% OP SOLN 2.5 ML BTL OPR SCH (20:40)
[2020-03-20] MEDS: LEVALBUTEROL 1.25MG/0.5ML NEB INH SCH ×3 (00:09→13:25)
[2020-03-20] MEDS: IPRATROPIUM BROMIDE NEB SOLN 0.02% 2.5 ML VIAL INH SCH ×3 (00:09→13:25)
[2020-03-20 07:08] LABS: BUN Creatinine Ratio 26.8 (10-20); Calcium 9.4 mg/dl (8.5-10.1); Creatinine Clr Calc Pharmacy 38.5 ml/min; Est GFR (African American) 62.1; Est GFR (Non-African American) 53.6; Potassium 3.6 mmol/L (3.5-5.1)
[2020-03-20] MEDS: DORZOLAMIDE/TIMOLOL 22.3/6.8MG/ML 10 ML BTL OPR SCH (08:07)
[2020-03-20] MEDS: METOPROLOL TARTRATE 100 MG TAB PO SCH (08:07)
[2020-03-20] MEDS: AMLODIPINE BESYLATE 5 MG TAB PO SCH (08:07)
[2020-03-20] MEDS: predniSONE 20 MG TAB PO SCH (08:07)
[2020-03-20] MEDS: MULTIVITAMIN TAB PO SCH (08:07)
[2020-03-20] MEDS: DOXYCYCLINE HYCLATE 100 MG CAP PO SCH (08:08)
[2020-03-20] MEDS: ENOXAPARIN INJ 30 MG/0.3 ML SYR SQ SCH (08:08)
[2020-03-20] MEDS: DOCUSATE SODIUM 100 MG CAP PO SCH (08:11)
--- NOTE | 2020-03-20 12:47 | Hospitalist Progress Note ---
Date of Service March 20, 2020 Assessment & Plan (1) Acute hypoxemic respiratory failure: Acute bronchitis--viral No signs of sepsis Hypoxia --CT chest:Motion degraded study. Tracheomalacia. Mild central bronchial wall thickening. Minor tree-in-bud opacities in the right lower lobe likely postinflammatory. Minor right upper lobe groundglass opacities. Enlarged left axillary lymph node --Biofire: Rhino/Entero Virus --COVID-19 PCR: Negative --Normal Procalcitonin -- Received Dexamethasone --Continue Doxycycline --Continue prednisone taper --2 step: Did not qualify for oxygen --Plan to discharge home today Hypertension Bp stable Continue amlodipine, metoprolol Monitor Hyperlipidemia Continue Statin Left axillary adenopathy on CT H/O breast Cancer S/P chemotherapy, surgery Informed patient about CT findings Prefers no further investigations Advised patient to follow-up as outpatient DVT Px: Lovenox SQ Code Status DNI/DNR Disposition Plan to discharge home today Admission and Anticipated Discharge Date Admission Date: March 17, 2020 Subjective Patient is seen and examined at bedside No significant cough States feeling well today Eager to get discharged 2 Step: Did not qualify for oxygen No new complaints Denies chest pain, SOB, dizziness, nausea, abdominal pain Review of Systems Review of Systems: All systems reviewed & are unremarkable except as noted in HPI & below Physical Exam Physical Exam: Physical Exam: Vitals signs as noted above General Appearance:Elderly, no apparent distress Head: normocephalic, Atraumatic Eyes: normal inspection, EOMI Neck: supple, Trachea midline Respiratory/Chest: Decreased breath sounds, CTA Cardiovascular: S1, S2, No murmur Abdomen/GI:Soft, Non tender, Bowel sounds present Extremities/Musculoskelatal:normal inspection, R leg Polio, Left LE edema Neurologic/Psych:AAOX3, grossly no focal neurological deficits Skin: normal color, warm Results & Data Results & Data ([facility]) Vital Signs (Past 12 Hours) Vital Signs Temp Pulse Pulse Pulse Pulse Pulse Resp 03/20/20 12:09 72 03/20/20 12:00 36.7 C 73 18 03/20/20 08:53 91 H 96 H 83 03/20/20 07:36 36.6 C 75 18 03/20/20 07:06 74 16 03/20/20 03:33 36.4 C L 82 20 Resp Resp Resp BP Pulse Ox Pulse Ox Pulse Ox 03/20/20 12:09 03/20/20 12:00 151/69 H 92 03/20/20 08:53 20 16 16 94 93 03/20/20 07:36 165/76 H 91 03/20/20 07:06 92 03/20/20 03:33 172/79 H 92 Pulse Ox 03/20/20 12:09 03/20/20 12:00 03/20/20 08:53 93 03/20/20 07:36 03/20/20 07:06 03/20/20 03:33 Laboratory Results [facility] 03/20/20 06:10 Sodium 142 Potassium 3.6 Chloride 109 H Carbon Dioxide 27 BUN 26 H Creatinine 0.96 Glucose 87 Calcium 9.4
--- NOTE | 2020-03-20 13:00 | Discharge Summary ---
Date of Service March 20, 2020 Admission HPI Per Admitting Provider History obtained from patient, family, and records. Medical history significant for hypertension, hyperlipidemia, chronic LBBB, breast cancer status post surgery chemotherapy, paraproteinemia as per records, PVD as per records, history of poliomyelitis. Last confinement September 2014 for generalized weakness and UTI. Last week patient developed cough symptoms productive of white sputum attributed to possible sinusitis. Worsening symptoms in the last few days with shortness of breath. No fever, no chills, no chest pain. Denies unusual fluid retention or leg swelling. Yesterday patient noted by personal fpc provider to have a lot of wheezing on auscultation. Noted to be hypoxemic at personal fpc. Outpatient CXR showed mild CHF. Patient sent to the ER for evaluation. IV Lasix given at the ER for possible CHF. Levaquin given at the ER. Medical History as above Surgical History : Bilateral mastectomy, cataract surgery, hip replacement Family History : Heart disease, skin cancer Personal/Social history : Non-smoker, no EtOH intake, retired banking manager, personal-fpc resident Admission Exam Per Admitting Provider Physical Exam Physical Exam: GENERAL: Slightly uncomfortable, slightly anxious, obese, no respiratory distress SKIN: Normal color, warm HEENT: Bespectacled, [place] palpebral conjunctivae, no ptosis, dry buccal mucosa, nasal cannula in place NECK : Supple, short neck, no tenderness CHEST : Decreased breath sounds, occasional expiratory wheezes, no tenderness HEART : RRR, no obvious murmurs ABDOMEN: Some distention, nontender EXTREMITIES : No LE swelling, no LE tenderness NEUROLOGIC : Coherent, no facial asymmetry, no other gross focality Principal Diagnosis Acute Viral bronchitis Hypoxia Discharge Data Allergies Allergy/AdvReac Type Severity Reaction Status Date / Time Iodinated Contrast Media Allergy Intermediate UNKNOWN-MED Verified 03/17/20 00:44 LIST iodine Allergy Intermediate UNKNOWN--MED Verified 03/17/20 00:44 LIST shellfish derived Allergy Intermediate UNKNOWN--MED Verified 03/17/20 00:44 LIST Consultations 03/17/20 02:22 ED Decision to Admit Stat Procedures Performed --CT chest:Motion degraded study. Tracheomalacia. Mild central bronchial wall thickening. Minor tree-in-bud opacities in the right lower lobe likely postinflammatory. Minor right upper lobe groundglass opacities. Enlarged left axillary lymph node Ordered Studies 03/17/20 00:55 CT chest wo con Urgent Hospital Course (1) Acute hypoxemic respiratory failure: Acute bronchitis--viral No signs of sepsis Hypoxia --CT chest:Motion degraded study. Tracheomalacia. Mild central bronchial wall thickening. Minor tree-in-bud opacities in the right lower lobe likely postinflammatory. Minor right upper lobe groundglass opacities. Enlarged left axillary lymph node --Biofire: Rhino/Entero Virus --COVID-19 PCR: Negative --Normal Procalcitonin -- Received Dexamethasone --Continue Doxycycline --Continue prednisone taper --2 step: Did not qualify for oxygen --Plan to discharge home today Hypertension Bp stable Continue amlodipine, metoprolol Monitor Hyperlipidemia Continue Statin Left axillary adenopathy on CT H/O breast Cancer S/P chemotherapy, surgery Informed patient about CT findings Prefers no further investigations Advised patient to follow-up as outpatient DVT Px: Lovenox SQ Code Status DNI/DNR Disposition Plan to discharge home today Total Time Total Time Spent Total Time Spent (In Minutes): 38 minutes Total Time Includes: Examination of the Patient, Discharge Planning, Medication Reconciliation, Communication With Other Providers and Other Discharge Plan Discharge Items Patient Disposition: Home - Self-Care Reason For Visit: RESP FAILURE,COVID NEG,DC ISOL Discharge Diagnosis: Acute Viral Bronchitis Hypoxia Activity: Resume your previous activity Exercise/Sports: Gradually increase as tolerated Non-emergency contact: Primary Care Provider Call non-emergency contact if: you have any medication questions, your symptoms worsen, your pain is not controlled, your pain is worsening, your pain is unusual for you, your pain is concerning for you and you have a fever Follow-up/Referrals: Tim Guzman MD [Physician] - 03/23/20 12:00 pm (Date & Time 03/23/2020 12:00 PM Provider Tim Guzman MD Department General Internal Medicine [facility] ) Gengo [Primary Care Provider] - Diet: Heart Healthy Addtl Attending Provider Instructions: Follow-up with your primary care physician Dr. Guzman on March 23, 2020 at 12:00 PM Completed doxycycline, prednisone course as prescribed Final blood cultures are pending at the time of discharge. Follow-up with your physician for results. Seek immediate medical attention if your symptoms reoccur or worsen Pending Studies at Discharge: Yes Studies:: Blood Cultures Stand-Alone Forms: [facility], Smoking Cessation Medications and DC Order Prescriptions: New doxycycline hyclate 100 mg Capsule 100 mg PO BID Qty: 5 RF: 0 prednisone 10 mg tablet 10 mg PO DAILY Qty: 3 RF: 0 Continued multivitamin Tablet 1 tab PO DAILY RF: 0 latanoprost 0.005 % Drops 1 drp OPR HS RF: 0 metoprolol tartrate 100 mg Tablet 100 mg PO BID RF: 0 magnesium hydroxide [Milk of Magnesia] 400 mg/5 mL Suspension 30 ml PO DAILY PRN (Reason: Constipation) RF: 0 amlodipine 10 mg Tablet 10 mg PO DAILY RF: 0 docusate sodium 100 mg Capsule 100 mg PO BID RF: 0 omeprazole 20 mg Capsule,Delayed Release(Dr/Ec) 20 mg PO HS RF: 0 dorzolamide-timolol 22.3-6.8 mg/mL Drops 1 drp OPR BID RF: 0 pravastatin 20 mg Tablet 20 mg PO HS RF: 0 Mucinex DM 30-600 mg Tablet Extended Release 12 Hr 1 tab PO Q12H RF: 0 Therems-M 27-0.4 mg Tablet 1 tab PO DAILY RF: 0 Rhopressa 0.02 % Drops 1 drp OPR PM RF: 0 Delsym Suspension 0 ml PO Q4H PRN (Reason: Cough) RF: 0 Mucinex DM 30-600 mg Tablet Extended Release 12 Hr 1 tab PO Q12H PRN (Reason: Congestion) RF: 0 Discharge Orders: Discharge Order (Routine); Ordered 03/20/20 Ordered By: Chacorta Westfall Admission Data Admit Date/Time: 03/17/20 03:44 Attending Provider: Chacorta Westfall Admit Provider: Gage Lopez Primary Care Provider: Kamelio [place], [place] Other Providers: Gage Lopez Other Interventions: Discharge Summary Assessment (RN) Last Done: 03/20/20 13:26
== END 2020-03-20 14:25 | disposition home or self-care (01) | DRG 189 ==
LOC: ED 23:51 → 2W 03-17 03:44

== ENCOUNTER 2021-09-21 23:53 | Inpatient (IN) ==
[2021-09-22] MEDS ORDERED: ONDANSETRON INJ 2 MG/ML 2 ML VIAL IV STA (00:42)
[2021-09-22] MEDS ORDERED: HYDROmorphone INJ 0.5 MG/0.5 ML SYR IV STA ×2 (00:42→02:33)
[2021-09-22 00:59] LABS: Basophils # (auto) 0.02 K/uL (0-0.2); Basophils % (auto) 0.2 %; Eosinophils % (auto) 1.9 %; Hematocrit (blood only) 44.8 % (37-47); Hemoglobin 15.6 g/dL (12.0-16.0); Immature Granulocytes # (auto) 0.01 K/uL (0.00-0.02); Immature Granulocytes % (auto) 0.1 %; Lymphocytes # (auto) 2.82 K/uL (1.2-3.4); Lymphocytes % (auto) 27.3 %; Mean Corpuscular Hemoglobin 33.5 pg (25-34); Mean Corpuscular Hgb Conc 34.8 g/dL (32-36); Mean Corpuscular Volume 96.3 fL (80-100); Mean Platelet Volume 9.8 fL (7.4-10.4); Monocytes # (auto) 0.95 K/uL (0.11-0.59); Monocytes % (auto) 9.2 %; Neutrophils # (auto) 6.32 K/uL (1.4-6.5); Neutrophils % (auto) 61.3 %; Platelet Count 178 K/uL (130-400); RDW Coefficient of Variation 12.6 % (11.5-14.5); Red Blood Count 4.65 M/uL (4.2-5.4); White Blood Count 10.32 K/uL (4.8-10.8)
[2021-09-22 01:27] LABS: Alanine Aminotransferase 16 U/L (7-52); Albumin Globulin Ratio 1.3 (0.9-2); Albumin Level 4.1 gm/dl (3.4-5.0); Alkaline Phosphatase 62 U/L (34-104); Anion Gap 7 (3-11); BUN Creatinine Ratio 24.5 (10-20); Bilirubin,Total 0.5 mg/dl (0.2-1.0); Blood Urea Nitrogen 24 mg/dl (6-23); C Reactive Protein 0.52 mg/dl (0-0.5); Calcium 9.5 mg/dl (8.5-10.1); Carbon Dioxide 26 mmol/L (21-32); Chloride 105 mmol/L (98-107); Creatinine Clr Calc Pharmacy 38.8 ml/min; Est GFR (African American) 59.7 ml/min; Est GFR (Non-African American) 51.5 ml/min; Globulin 3.1 gm/dl (2.5-4.0); Glucose 128 mg/dl (70-99(Fasting)); Sodium 138 mmol/L (136-145); Total Protein 7.2 gm/dl (6.0-8.3)
--- NOTE | 2021-09-22 01:36 | Emergency Department Note ---
Impression & Plan Acute pain of right hip Admit to the [facility] service ED Provider Note NAME: NORMA HILLIARD AGE: 86 SEX: F ARRIVES VIA: Ambulance INFORMANT: Patient ED PROVIDER(S): Pooja Junior DO CHIEF COMPLAINT: Right hip pain PLAN: Disposition: Admit to the [facility] Condition: Stable MEDICAL DECISION MAKING: This is an 86-year-old female patient from [facility] who presents to the emergency department with severe right hip pain that takes her breath away. CT scan of the abdomen/pelvis shows questionable displacement of the acetabular screws from her hardware in the right hip prosthesis. This may be displaced into the soft tissues of the pelvis. This could be the source of the patient's pain. Patient's pain seemed to be intractable and she has required multiple doses of IV analgesia. Discussed the case with the [facility]ist and they will evaluate for further management and consult with orthopedics. Triage Nursing notes reviewed and agree with them. Additional history obtained from family member at the bedside Vital Signs: reviewed and unremarkable Differential diagnosis: Loosened hardware; occult fracture; septic joint; shingles ER treatment provided: IV Dilaudid x2 IV Zofran Diagnostics interpreted by me: Laboratory studies: See below Imaging studies: As per stat rad CT right hip: Right total hip arthroplasty. No evidence of complication. There was an addendum placed on the report which resulted as-right total hip arthroplasty. No evidence of femoral hardware loosening. The medial aspect of the acetabular prosthesis extends past the bony margin of the acetabular wall with screws extending into the soft tissues of the pelvis. This may be related to intended operative positioning as well as be from slow migration of the acetabular hardware. Correlation with postsurgical appearance on prior radiographs is recommended to ensure stability. No acute fracture or traumatic malalignment. Mild degenerative changes seen in the right sacroiliac joint. HPI: 86/F arrives for evaluation of right hip pain. Patient describes severe pain in the right hip that it takes her breath away. The pain only seems to oc cur in the evenings when she sits down in her bed. He is able to walk throughout the day without pain and she describes it. However, patient presents here with very severe pain. ROS: See above HPI for pertinent positives & negatives. A total of 10 systems reviewed and were otherwise negative. PAST MEDICAL HISTORY:Hypertension; hypercholesterolemia; GERD PAST SURGICAL HISTORY:Bilateral total hip replacements done here and at [place] many many years ago SOCIAL HISTORY:Patient lives at [facility] HOME MEDICATIONS:See list ALLERGIES:See list VITALS:See Below PHYSICAL EXAMINATION: HEENT: Head - normocephalic and atraumatic Pupils are equal, round, and reacti ve to light. Extraocular eye muscles are intact, and sclera are anicteric. Nose - moist nasal mucosa without discharge. Mouth - moist buccal mucosa. Oropharynx is nonerythematous and there is no tonsillar exudate or edema noted. Neck: Supple; no JVD or cervical lymphadenopathy Heart: Regular rate and rhythm. There is a normal S1 and S2 with no murmurs, clicks, or gallops appreciated. Lungs: Clear to auscultation bilaterally with no wheezes, rales, or rhonchi. Abdomen: Soft, completely nontender, nondistended, with good bowel sounds. There are no palpable pulsatile masses or hepatosplenomegaly. There is no guarding, rigidity, or rebound noted. Extremities: No evidence of cyanosis, clubbing, or edema. There are easily palpable peripheral pulses. The patient has normal strength in both lower extremities with equal pedal push and pull. I could not reproduce the patient's pain with palpation over the right hip or groin area but with any type of range of motion to the hip, this did reproduce the severe pain. Skin: warm and dry with good turgor and no rashes. ED COURSE: Times/Reassessments: 0025: The patient was evaluated in room A2. A complete history and physical was performed. An IV lock was initiated and labs were dra lundy as above. The patient was given IV Zofran and IV Dilaudid for her pain. She went for CT scan of the right hip as described above. They recommended plain x- rays of the right hip which confirmed there appears to be displacement of the at least one of the acetabular screws. The patient had recurrence of her pain and was given a second dose of IV Dilaudid. Discussed the case with the [facility] hospitalist and they will evaluate for further inpatient care and consult with orthopedics. 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 Beliefs That Will Affect Care: None Current Living Situation: Personal Care Facility Current Living Situation Comment: [facility] Feels Safe at Home: Yes Safety Concerns: Feels Safe At This Time Assistive Devices: Glasses and Walker Allergies Allergies Allergy/AdvReac Type Severity Reaction Status Date / Time Iodinated Contrast Media Allergy Intermediate UNKNOWN-MED Verified 09/22/21 00:31 LIST iodine Allergy Intermediate UNKNOWN--MED Verified 09/22/21 00:31 LIST shellfish derived Allergy Intermediate UNKNOWN--MED Verified 09/22/21 00:31 LIST Home Meds Home Medications Medication Instructions Recorded Confirmed amlodipine 10 mg tablet 10 mg PO DAILY 03/17/20 09/22/21 docusate sodium 100 mg capsule 100 mg PO BID 03/17/20 09/22/21 dorzolamide 22.3 mg-timolol 6.8 1 drp OPR BID 03/17/20 09/22/21 mg/mL eye drops latanoprost 0.005 % eye drops 1 drp OPR HS 03/17/20 09/22/21 magnesium hydroxide 400 mg/5 mL 30 ml PO DAILY PRN 03/17/20 09/22/21 oral suspension (Milk of DIVINE [employer]OOKS) metoprolol tartrate 100 mg tablet 100 mg PO BID 03/17/20 09/22/21 netarsudil 0.02 % eye drops 1 drp OPR PM 03/17/20 09/22/21 (Rhopressa) omeprazole 20 mg capsule,delayed 20 mg PO HS 03/17/20 09/22/21 release pravastatin 20 mg tablet 20 mg PO HS 03/17/20 09/22/21 acetaminophen 500 mg tablet 1,000 mg PO Q8 PRN MDD 3g 09/22/21 09/22/21 (Acetaminophen Extra Strength) albuterol sulfate 90 mcg/actuation 2 puff INHALATION Q4 PRN 09/22/21 09/22/21 aerosol inhaler benzonatate 200 mg capsule 200 mg PO TID PRN 09/22/21 09/22/21 dextromethorphan HBr 30 mg/5 mL 30 mg PO QID PRN 09/22/21 09/22/21 oral liquid losartan 25 mg tablet 25 mg PO DAILY 09/22/21 09/22/21 multivitamin with minerals-folic 2 tab PO DAILY 09/22/21 09/22/21 acid 200 mcg chewable tablet (Multivitamin Gummies) Results & Data (ED) Vital Signs Vital Signs - 24 hr 09/22/21 00:02 09/22/21 01:16 09/22/21 03:00 Temperature 36.9 C Temperature Source Oral Pulse Rate 72 Pulse Rate [Finger] 70 69 Respiratory Rate 18 16 16 Respiratory Effort / Characteristics Non-Labored Spontaneous Non-Labored Spontaneous Non-Labored Spontaneous Respiratory Depth Normal Normal Normal Blood Pressure 180/91 H Blood Pressure [Right Arm] 155/78 H 164/94 H Blood Pressure Mean 120 Blood Pressure Mean [Right Arm] 103 117 Pulse Oximetry 95 92 93 Oxygen Delivery Method Room Air Nasal Cannula Nasal Cannula Oxygen Flow Rate 2 2 Sepsis Recent Fever Within 48 Hours No Sepsis New/Unexplained Change in Mental Status No Sepsis Action Taken by Nursing No Action Required Oxygen Flow Rate - Titration 2 Pulse Oximetry Post Tiitration 93 09/22/21 04:31 Temperature Temperature Source Pulse Rate Pulse Rate [Finger] 64 Respiratory Rate 16 Respiratory Effort / Characteristics Non-Labored Spontaneous Respiratory Depth Normal Blood Pressure Blood Pressure [Right Arm] 133/79 Blood Pressure Mean Blood Pressure Mean [Right Arm] 97 Pulse Oximetry 96 Oxygen Delivery Method Nasal Cannula Oxygen Flow Rate 2 Sepsis Recent Fever Within 48 Hours Sepsis New/Unexplained Change in Mental Status Sepsis Action Taken by Nursing Oxygen Flow Rate - Titration Pulse Oximetry Post Tiitration Laboratory Data Result diagrams: 09/22/21 00:51 09/22/21 01:54 Lab Results 09/22/21 09/22/21 09/22/21 Range/Units 00:51 00:51 00:51 WBC 10.32 (4.8-10.8) K/uL RBC 4.65 (4.2-5.4) M/uL Hgb 15.6 (12.0-16.0) g/dL Hct 44.8 (37-47) % MCV 96.3 (80-100) fL MCH 33.5 (25-34) pg MCHC 34.8 (32-36) g/dL RDW Std Deviation 44.0 (36.4-46.3) fL RDW Coeff of Marlon 12.6 (11.5-14.5) % Plt Count 178 (130-400) K/uL MPV 9.8 (7.4-10.4) fL Immature Gran % (Auto) 0.1 % Neut % (Auto) 61.3 % Lymph % (Auto) 27.3 % [place] % (Auto) 9.2 % Eos % (Auto) 1.9 % Baso % (Auto) 0.2 % Neut # (Auto) 6.32 (1.4-6.5) K/uL Lymph # (Auto) 2.82 (1.2-3.4) K/uL [place] # (Auto) 0.95 H (0.11-0.59) K/uL Eos # (Auto) 0.20 (0-0.5) K/uL Baso # (Auto) 0.02 (0-0.2) K/uL Immature Gran # (Auto) 0.01 (0.00-0.02) K/uL ESR 17 (0-30) mm/hr Sodium 138 (136-145) mmol/L Potassium TNP Chloride 105 (98-107) mmol/L Carbon Dioxide 26 (21-32) mmol/L Anion Gap 7 (3-11) BUN 24 H (6-23) mg/dl Creatinine 0.98 (0.6-1.2) mg/dl Est Cr Clr Drug Dosing 38.8 ml/min Est GFR ( Amer) 59.7 ml/min Est GFR (Non-Af Amer) 51.5 ml/min BUN/Creatinine Ratio 24.5 H (10-20) Glucose 128 H (70-99(Fasting)) mg/dl Calcium 9.5 (8.5-10.1) mg/dl Total Bilirubin 0.5 (0.2-1.0) mg/dl AST TNP ALT 16 (7-52) U/L Alkaline Phosphatase 62 (34-104) U/L C-Reactive Protein 0.52 H (0-0.5) mg/dl Total Protein 7.2 (6.0-8.3) gm/dl Albumin 4.1 (3.4-5.0) gm/dl Globulin 3.1 (2.5-4.0) gm/dl Albumin/Globulin Ratio 1.3 (0.9-2) SARS-CoV-2, RNA, NAAT (NEGATIVE) 09/22/21 09/22/21 Range/Units 01:54 03:30 WBC (4.8-10.8) K/uL RBC (4.2-5.4) M/uL Hgb (12.0-16.0) g/dL Hct (37-47) % MCV (80-100) fL MCH (25-34) pg MCHC (32-36) g/dL RDW Std Deviation (36.4-46.3) fL RDW Coeff of Marlon (11.5-14.5) % Plt Count (130-400) K/uL MPV (7.4-10.4) fL Immature Gran % (Auto) % Neut % (Auto) % Lymph % (Auto) % [place] % (Auto) % Eos % (Auto) % Baso % (Auto) % Neut # (Auto) (1.4-6.5) K/uL Lymph # (Auto) (1.2-3.4) K/uL [place] # (Auto) (0.11-0.59) K/uL Eos # (Auto) (0-0.5) K/uL Baso # (Auto) (0-0.2) K/uL Immature Gran # (Auto) (0.00-0.02) K/uL ESR (0-30) mm/hr Sodium (136-145) mmol/L Potassium 4.4 Chloride (98-107) mmol/L Carbon Dioxide (21-32) mmol/L Anion Gap (3-11) BUN (6-23) mg/dl Creatinine (0.6-1.2) mg/dl Est Cr Clr Drug Dosing ml/min Est GFR ( Amer) ml/min Est GFR (Non-Af Amer) ml/min BUN/Creatinine Ratio (10-20) Glucose (70-99(Fasting)) mg/dl Calcium (8.5-10.1) mg/dl Total Bilirubin (0.2-1.0) mg/dl AST 15 ALT (7-52) U/L Alkaline Phosphatase (34-104) U/L C-Reactive Protein (0-0.5) mg/dl Total Protein (6.0-8.3) gm/dl Albumin (3.4-5.0) gm/dl Globulin (2.5-4.0) gm/dl Albumin/Globulin Ratio (0.9-2) SARS-CoV-2, RNA, NAAT NEGATIVE (NEGATIVE) Administered Medications Oxycodone HCl (Oxycodone Hcl Ir 5 Mg Tab (Immediate Release)) 5 mg PO Q4H PRN PRN Reason: Pain Stop: 10/06/21 05:11 Last Admin: 09/22/21 05:20 Dose: 5 mg Documented by: [id number] Discontinued Medications Hydromorphone HCl (Hydromorphone Inj 0.5 Mg/0.5 Ml Syr) 0.5 mg IV NOW STA Stop: 09/22/21 00:43 Last Admin: 09/22/21 00:56 Dose: 0.5 mg Documented by: [id number] Hydromorphone HCl (Hydromorphone Inj 0.5 Mg/0.5 Ml Syr) 0.5 mg IV NOW STA Stop: 09/22/21 02:34 Last Admin: 09/22/21 02:40 Dose: 0.5 mg Documented by: [id number] Sodium Chloride (Nss) 500 mls @ 999 mls/hr IV .Q31M ONE Stop: 09/22/21 02:11 Last Infusion: 09/22/21 02:17 Dose: 0 mls/hr Documented by: [id number] Admin: 09/22/21 01:44 Dose: 999 mls/hr Documented by: [id number] Ondansetron HCl (Ondansetron Inj 2 Mg/Ml 2 Ml Vial) 4 mg IV NOW STA Stop: 09/22/21 00:43 Last Admin: 09/22/21 00:56 Dose: 4 mg Documented by: [id number] Discharge Plan Visit Data Chief Complaint: Hip Pain Stated Complaint: rt. HIP PAIN ED Provider: Pooja Junior Discharge Problem: Acute pain of right hip Patient Disposition: Admitted As Inpatient Discharge Instructions Interventions: ED Discharge Assessment Last Done: 09/22/21 05:20
[2021-09-22] MEDS ORDERED: SODIUM CHLORIDE 0.9% 500 ML IV ONE (01:41)
[2021-09-22 02:19] LABS: Potassium 4.4 mmol/L (3.5-5.1)
[2021-09-22] MEDS ORDERED: HYDROmorphone INJ 0.5 MG/0.5 ML SYR IV PRN (05:12)
[2021-09-22] MEDS: oxyCODONE HCL IR 5 MG TAB (IMMEDIATE RELEASE) PO PRN ×2 (05:20→18:55)
[2021-09-22] MEDS ORDERED: ACETAMINOPHEN 325 MG TAB PO PRN (05:40)
[2021-09-22] MEDS ORDERED: POLYETHYLENE (MIRALAX) 17 GM PACK PO PRN (05:40)
[2021-09-22] MEDS ORDERED: BENZONATATE 100 MG CAPSULE PO PRN (05:40)
[2021-09-22] MEDS ORDERED: ONDANSETRON INJ 2 MG/ML 2 ML VIAL IV PRN (05:40)
[2021-09-22] MEDS ORDERED: D5W AND NSS 1,000 ML IV SCH (05:40)
[2021-09-22] MEDS ORDERED: ALBUTEROL HFA 8 GM INHALER INH PRN (05:40)
[2021-09-22] MEDS ORDERED: MAGNESIUM HYDROXIDE SUSP 30 ML UDC PO PRN (05:40)
[2021-09-22] MEDS ORDERED: DEXTROMETHORPHAN POLYMR COMPLX 30 MG/5 ML UDP PO PRN (06:30)
--- NOTE | 2021-09-22 06:31 | XRay Report ---
XR hip RT 2V w pelvis CLINICAL HISTORY: questionable acetabular screw issue COMPARISON: CT of the abdomen and pelvis January 11, 2010. CT of the right hip performed earlier today. FINDINGS: Sacroiliac joints and symphysis pubis are intact. Bilateral hip arthroplasties are noted. The more superior right acetabular screw extends through the medial cortex of the acetabulum and into the adjacent soft tissues. This is unchanged from earlier CT of January 11, 2010. No periprosthetic frac ture or lucency is noted. Appearance of the left hip arthroplasty is also unchanged. IMPRESSION: 1. No acute fracture within the pelvis or hips. 2. No change in appearance of bilateral total hip arthroplasties since CT of January 11, 2010. Unchanged position of a right acetabular screw which extends through the medial cortex of the acetabulum and in to the adjacent soft tissues. 3. No periprosthetic fracture or lucency. ACT 112: Negative or not required by law. Electronically signed by: Paxton Vargas M.D. 09/22/2021 6:29 AM
--- NOTE | 2021-09-22 06:52 | CT Scan Report ---
CT hip RT wo con CLINICAL HISTORY: Right hip pain. No trauma. COMPARISON STUDY: CT of the abdomen pelvis January 2010. TECHNIQUE: Axial images of the right hip were obtained without IV contrast. Sagittal and coronal darius nstructions were viewed. Automated exposure control was utilized for the study. A dose lowering tech nique was utilized adhering to the principles of ALARA. FINDINGS: Right hip arthroplasty is intact. No periprosthetic fracture or lucency is present. Postope rative appearance is similar to CT of January 11, 2010. Specifically, the more superior acetabular screw extends into the soft tissues of the right hemipelvis. Visualized portions of the right hemipelvis ar e unremarkable. There is no right inguinal lymphadenopathy. No mass or fluid collection is identified on this examination. No suspicious osseous lesions are identified. 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 IMPRESSION: 1. Status post total right hip arthroplasty. No periprosthetic fracture or lucency. 2. No change in appearance of the right hip arthroplasty since CT of January 11, 2010. The more superior acetabular screw is unchanged in position and extends into the right hemipelvis. ACT 112: Negative or not required by law. Electronically signed by: Paxton Vargas M.D. 09/22/2021 6:50 AM
--- NOTE | 2021-09-22 07:12 | XRay Report ---
XR chest 1V portable CLINICAL HISTORY: pre op COMPARISON STUDY: Chest radiograph May 07, 2020. FINDINGS: Patient is mildly rotated. No pneumothorax or pleural effusion is present. Minimal left bas ilar opacity reflects atelectasis. No evidence for pulmonary edema. No consolidation to suggest pneum onia. Cardiomediastinal silhouette is stable IMPRESSION: No acute cardiopulmonary findings. ACT 112: Negative or not required by law. Electronically signed by: Paxton Vargas M.D. 09/22/2021 7:11 AM
[2021-09-22] MEDS ORDERED: DORZOLAMIDE/TIMOLOL 22.3/6.8MG/ML 10 ML BTL OPR SCH (09:00)
[2021-09-22] MEDS ORDERED: LOSARTAN POTASSIUM 25 MG TAB PO SCH (09:00)
[2021-09-22] MEDS ORDERED: amLODIPine BESYLATE 5 MG TAB PO SCH (09:00)
[2021-09-22] MEDS ORDERED: METOPROLOL TARTRATE 100 MG TAB PO SCH (09:00)
[2021-09-22] MEDS ORDERED: DOCUSATE SODIUM 100 MG CAP PO SCH (09:00)
[2021-09-22] MEDS ORDERED: CEROVITE ADV FORMULA TAB PO SCH (09:00)
--- NOTE | 2021-09-22 09:17 | History and Physical Report ---
DATE OF ADMISSION: 09/22/2021. CHIEF COMPLAINT: Right hip pain. HISTORY OF PRESENT ILLNESS: An 86-year-old female with past medical history significant for hyperlipidemia, peripheral vascular disease, hypertension, chronic kidney disease stage III, GERD, history of primary open angle glaucoma bilateral, history of polycythemia, paraproteinemia, history of kidney stones, history of postpolio syndrome, history of breast cancer, status post surgery and chemotherapy as per records who lives at the [facility], was brought in because of right hip pain. Right hip pain is going for last 2 to 3 days, it is only at the nighttime when she sleeps and in morning time she is able to walk with a walker. Tonight it was very severe that is why she was brought into the hospital. Daughter is in the room. Minimal movement is causing lot of pain in the right hip. Imaging studies show possible loosening of the hardware, hemodynamically stable. Denies any other complaints. Denies any headache. No blurred visions, no earache, no runny nose, no sore throat, no cough, no nausea, no vomiting. Appetite is good. No difficulty swallowing. No chest pain, no shortness of breath, no abdominal pain, no neck pain. Normal bowel and bladder movements. ALLERGIES: IODINATED CONTRAST MEDIA, SHELLFISH. PAST MEDICAL HISTORY: As mentioned above. PAST SURGICAL HISTORY: Bilateral mastectomies, colonoscopy, colonoscopy with biopsy, cataract surgery, bilateral hip replacements. MEDICATIONS: The patient is on Tylenol Extra Strength 1000 mg p.o. q. 8 hours p.r.n., albuterol 2 puffs inhalation q. 4 hours p.r.n., amlodipine 10 mg p.o. daily, benzonatate 100 mg p.o. t.i.d. p.r.n., Colace 100 mg p.o. b.i.d., dorzolamide/timolol one drop ophthalmic b.i.d., latanoprost one drop ophthalmic at bedtime, losartan 25 mg p.o. daily, Milk of Magnesia 30 mL p.o. daily p.r.n., metoprolol tartrate 100 mg p.o. b.i.d., multivitamins 2 tablet daily, omeprazole 20 mg p.o. at bedtime, pravastatin 20 mg p.o. at bedtime, Rhopressa one drop ophthalmic in p.m. FAMILY HISTORY: Significant for mother had heart disorder; father has lung disorder; brother has skin cancer, brother has heart disorder. SOCIAL HISTORY: Single, currently lives at [facility]. No smoking. No alcohol use. No drug use. REVIEW OF SYSTEMS: As per HPI. Rest of the review of systems is negative. PHYSICAL EXAMINATION: GENERAL: The patient is of moderate build, not in acute distress. VITAL SIGNS: Temperature 36.9, pulse 64, respiratory rate 16, blood pressure 133/79, oxygen 96% on 2 liters. HEENT: Pupils equal, round and reactive to light. Oral mucosa moist. NECK: No JVD, no neck masses. CARDIOVASCULAR: S1 and S2 heard. Regular rate and rhythm. No murmur, no gallop. RESPIRATORY SYSTEM: Normal AP diameter. No accessory muscle use. No wheezing, no crackles. ABDOMEN: Soft, bowel sounds are nontender, no distention. CENTRAL NERVOUS SYSTEM: Cranial nerves II through XII are grossly intact, nonfocal. EXTREMITIES: Bilateral lower extremity edema present. Painful movements of the right hip region. LABORATORY DATA: WBC 10.3, hemoglobin 15.6, hematocrit 44.8, platelets 178. ESR 17. Sodium 138, potassium 4.4, chloride 105, bicarbonate 26, BUN 24, creatinine 0.9, serum glucose 128, calcium 9.5, total bilirubin 0.5, AST 15, ALT 16, alkaline phosphatase 62. C-reactive protein 0.5. SARS-CoV-2 RNA negative. IMAGING DATA: Hip CT, possible hardware loosening of the right hip. ASSESSMENT AND PLAN: An 86-year-old female who presents with right hip pain. 1. Right hip pain, possible hardware loosening on the CAT scan . We will await the final report. Pain control. We will keep her n.p.o., gentle fluids. We will get preop EKG and chest x-ray. If EKG and chest x-ray okay,the patient ishould be at acceptable risk to proceed with surgery if it is planned. Monitor in the medical floor. 2. History of chronic kidney disease stage III, current creatinine 0.9. We will follow the labs. 3. History of hypertension. Continue losartan and amlodipine. We will monitor the blood pressure. 4. History of hyperlipidemia. Continue statin. 5. History of gastroesophageal reflux disease. Continue omeprazole. 6. History of primary open angle glaucoma. Continue her home eyedrops. 7. History of peripheral vascular disease, on statin. 8. History of breast cancer, status post surgery and chemo. 9. Lower extremity edema. will f/u echocardiogram.May need doppler study. 10. Deep venous thrombosis prophylaxis: Sequential compression devices for now. Further anticoagulation after evaluation by Orthopedics. DISPOSITION: Admit to medical floor. PT/OT prior to discharge. Social service to help with discharge planning. Level 1 full code as per my discussion with the daughter. Job ID: [id number] MTDD
--- NOTE | 2021-09-22 10:30 | Electrocardiogram Report ---
Test Reason : Blood Pressure : / mmHG Vent. Rate : 063 BPM Atrial Rate : 063 BPM P-R Int : 180 ms QRS Dur : 138 ms QT Int : 460 ms P-R-T Axes : 050 019 091 degrees QTc Int : 470 ms Normal sinus rhythm Left bundle branch block Abnormal ECG When compared with ECG of 17-MAR-2020 00:01, No significant change was found Confirmed by Roderick Hahn ([id number]) on 09/22/2021 10:29:56 AM Referred By: Jazmín Rice Siren Confirmed By:Jeovanny Hahn
--- NOTE | 2021-09-22 10:35 | Orthopedic Consultation ---
Date of Consultation September 22, 2021 Assessment & Plan (1) Acute pain of right hip: She has fairly recent onset of intractable right hip/abdominal pain. This is been going on for several weeks. I do think this is likely related to the intra-abdominal screw from her previous right total hip arthroplasty. I cannot see any other obvious reason for pain at this right hip/abdominal area. No evidence of infection of the total hip arthroplasty, and no exam findings consistent with trochanteric bursitis. The rest of the hip replacement is largely unremarkable. No evidence of loosening of the total hip components. CT scan has been unchanged over the past 12 years. If this intra-abdominal screw is the source of her pain, I cannot really say why her pain is of recent onset, but this is concerning for progressive erosion into the intra-abdominal organs. Based on the appearance of her x-rays and CT scan, I would highly recommend revision of her total hip arthroplasty with removal of the intra-abdominal screw. She may require a general surgery procedure as well to explore the intr a-abdominal contents to ensure that there is no significant intra-abdominal organ damage or bowel perforation. This would be a big surgery for her. I would highly recommend transfer to a tertiary care facility for further treatment of this. It makes most sense to transfer her to [facility] since this is where her hip replacement was done originally. She is unsure whether she would want to proceed with this type of surgery. I spoke at length with the patient and her niece on the phone regarding my diagnosis and recommendations for treatment. I am concerned that continued erosion of the screw into the intra-abdominal organs can lead to bowel perforation, sepsis, and . She will discuss this further with her niece, and let us know if she would like to proceed with this transfer to [facility]. If not, she can be discharged home. History of Present Illness Reason for Consultation: Right hip/abdominal pain Attending Physician: Kehinde Engel MD History of Present Illness Ms. Santacruz is an 86-year old female who was admitted with intractable right hip and abdominal pain. This been going on for several weeks. She says that it primarily bothers her when she is laying in bed at night and twists her abdomen. She denies a lot of pain during daytime, and denies pain with ambulation. She had a right total hip arthroplasty done somewhere around 15 to 20 years ago. She cannot recall exactly when it was done, but says it was done at [facility] in [place]. She does not recall the name of the doctor. She was never told that there was any problem with the hardware after implantation. She denies any current fevers, chills, or night sweats. She denies bloody stools or bloody urine. Allergies Allergy/AdvReac Type Severity Reaction Status Date / Time Iodinated Contrast Media Allergy Intermediate UNKNOWN-MED Verified 09/22/21 00:31 LIST iodine Allergy Intermediate UNKNOWN--MED Verified 09/22/21 00:31 LIST shellfish derived Allergy Intermediate UNKNOWN--MED Verified 09/22/21 00:31 LIST Home Medications Medication Instructions Recorded Confirmed Type amlodipine 10 mg tablet 10 mg PO DAILY 03/17/20 09/22/21 History docusate sodium 100 mg capsule 100 mg PO BID 03/17/20 09/22/21 History dorzolamide 22.3 mg-timolol 6.8 1 drp OPR BID 03/17/20 09/22/21 History mg/mL eye drops latanoprost 0.005 % eye drops 1 drp OPR HS 03/17/20 09/22/21 History magnesium hydroxide 400 mg/5 mL 30 ml PO DAILY PRN 03/17/20 09/22/21 History oral suspension (Milk of Magnesia) metoprolol tartrate 100 mg tablet 100 mg PO BID 03/17/20 09/22/21 History netarsudil 0.02 % eye drops 1 drp OPR PM 03/17/20 09/22/21 History (Rhopressa) omeprazole 20 mg capsule,delayed 20 mg PO HS 03/17/20 09/22/21 History release pravastatin 20 mg tablet 20 mg PO HS 03/17/20 09/22/21 History acetaminophen 500 mg tablet 1,000 mg PO Q8 PRN MDD 3g 09/22/21 09/22/21 History (Acetaminophen Extra Strength) albuterol sulfate 90 mcg/actuation 2 puff INHALATION Q4 PRN 09/22/21 09/22/21 History aerosol inhaler benzonatate 200 mg capsule 200 mg PO TID PRN 09/22/21 09/22/21 History dextromethorphan HBr 30 mg/5 mL 30 mg PO QID PRN 09/22/21 09/22/21 History oral liquid losartan 25 mg tablet 25 mg PO DAILY 09/22/21 09/22/21 History multivitamin with minerals-folic 2 tab PO DAILY 09/22/21 09/22/21 History acid 200 mcg chewable tablet (Multivitamin Gummies) Patient History Social History Smoking Status: Never smoker Hx Alcohol Use: No Hx Substance Use: No Preferred Language: Icelandic Communication Ability: Effective Community Health Advocate Required: No Beliefs That Will Affect Care: None Current Living Situation: Personal Care Facility Current Living Situation Comment: [facility] Feels Safe at Home: Yes Safety Concerns: Feels Safe At This Time Assistive Devices: Glasses and Walker Physical Exam Physical Exam: Examination of the right hip reveals a well-healed surgical incision without any evidence of infection. No erythema, warmth, or drainage. No induration over the hip. No tenderness palpation along the lateral aspect of the hip over the greater trochanter. No pain in the hip with logroll of the right femur. No direct tenderness to palpation anywhere around the hip area. No tenderness palpation in the abdomen. However, she describes reproduction of this pain deep within her right abdominal area with twisting motions of her abdomen. Results & Data ([facility]) Vital Signs (Past 12 Hours) Vital Signs Temp Pulse Pulse Pulse Resp BP BP 09/22/21 08:14 36.4 C L 62 18 09/22/21 08:00 36.7 C 67 18 156/63 H 09/22/21 05:41 36.9 C 68 20 09/22/21 05:00 75 16 09/22/21 04:31 64 16 09/22/21 03:00 69 16 09/22/21 01:16 70 16 09/22/21 00:02 36.9 C 72 18 180/91 H BP Pulse Ox 09/22/21 08:14 147/72 H 95 09/22/21 08:00 96 09/22/21 05:41 155/61 H 94 09/22/21 05:00 154/80 H 95 09/22/21 04:31 133/79 96 09/22/21 03:00 164/94 H 93 09/22/21 01:16 155/78 H 92 09/22/21 00:02 95 Laboratory Results WBC-10.3 ESR-17 CRP-0.5 Diagnostic Findings Right hip x-rays and CT scan were reviewed, and compared to previous CT scan in our system from 2010. No evidence of any hardware failure or loosening. No evidence of excessive wear of the polyethylene liner on the right, but this is noted in her opposite left hip replacement. The most concerning finding on the right hip is significant protrusion of an acetabular component screw deep into the intra-abdominal space. It appears that this screw protrudes about 3.5 cm into the intra-abdominal cavity. This screw does not appear to be in any bone. The screw appearance is unchanged from previous CT scan in 2010. The tip of the screw is well beyond the border of the iliacus muscle, and appears to be directly adjacent to intra-abdominal bowel.
--- NOTE | 2021-09-22 13:25 | Surgery Consultation ---
Date of Consultation September 22, 2021 Assessment & Plan (1) Abnormal computed tomography of pelvis: Ms. Santacruz has a right hip screw that has eroded through medial acetabulum and is extending into the pelvic soft tissues. This is not intra-abdominal and does not appear to be involving any bowel. It has been unchanged in appearance since 2009 and thus, may not be the full reason for her worsening hip pain. She has a benign abdomen on exam and likely will not need intra-abdominal exploration. Based on review of the CT, the screw is still attached to the hip replacement and likely can be removed at the time of repeat hip surgery if needed. She is stable for transfer to [place]. Discussed with Dr. Engel. History of Present Illness Reason for Consultation: abnormal pelvic CT kumar Requesting Physician: Kehinde Engel MD Attending Physician: Kehinde Engel MD History of Present Illness 86 yr old woman with history of right hip replacement many years ago admitted with intractable right hip pain. Her imaging shows that one of the screws has eroded through the acetabulum and extends into the pelvic soft tissues. Of note, the appearance and location of the screw is unchanged from a CT scan since 2009. She denies any abdominal pain. Has been able to eat without any problems. Bowels have been functioning on a daily basis; occasionally uses prune juice to help. No nausea or vomiting. Allergies Allergy/AdvReac Type Severity Reaction Status Date / Time Iodinated Contrast Media Allergy Intermediate UNKNOWN-MED Verified 09/22/21 00:31 LIST iodine Allergy Intermediate UNKNOWN--MED Verified 09/22/21 00:31 LIST shellfish derived Allergy Intermediate UNKNOWN--MED Verified 09/22/21 00:31 LIST Home Medications Medication Instructions Recorded Confirmed Type amlodipine 10 mg tablet 10 mg PO DAILY 03/17/20 09/22/21 History docusate sodium 100 mg capsule 100 mg PO BID 03/17/20 09/22/21 History dorzolamide 22.3 mg-timolol 6.8 1 drp OPR BID 03/17/20 09/22/21 History mg/mL eye drops latanoprost 0.005 % eye drops 1 drp OPR HS 03/17/20 09/22/21 History magnesium hydroxide 400 mg/5 mL 30 ml PO DAILY PRN 03/17/20 09/22/21 History oral suspension (Milk of Magnesia) metoprolol tartrate 100 mg tablet 100 mg PO BID 03/17/20 09/22/21 History netarsudil 0.02 % eye drops 1 drp OPR PM 03/17/20 09/22/21 History (Rhopressa) omeprazole 20 mg capsule,delayed 20 mg PO HS 03/17/20 09/22/21 History release pravastatin 20 mg tablet 20 mg PO HS 03/17/20 09/22/21 History acetaminophen 500 mg tablet 1,000 mg PO Q8 PRN MDD 3g 09/22/21 09/22/21 History (Acetaminophen Extra Strength) albuterol sulfate 90 mcg/actuation 2 puff INHALATION Q4 PRN 09/22/21 09/22/21 History aerosol inhaler benzonatate 200 mg capsule 200 mg PO TID PRN 09/22/21 09/22/21 History dextromethorphan HBr 30 mg/5 mL 30 mg PO QID PRN 09/22/21 09/22/21 History oral liquid losartan 25 mg tablet 25 mg PO DAILY 09/22/21 09/22/21 History multivitamin with minerals-folic 2 tab PO DAILY 09/22/21 09/22/21 History acid 200 mcg chewable tablet (Multivitamin Gummies) Patient History Social History Smoking Status: Never smoker Hx Alcohol Use: No Hx Substance Use: No Preferred Language: Slovak Communication Ability: Effective Space Systems Operations Superintendent Required: No Beliefs That Will Affect Care: None marital status: Single Current Living Situation: Personal Care Facility Current Living Situation Comment: [facility] How many Children do You have: 2 Feels Safe at Home: Yes Safety Concerns: Feels Safe At This Time Assistive Devices: Walker Physical Exam Constitutional: WD/WN, vitals as above Neck: normal visual inspection and trachea midline Respiratory: normal respiratory effort, lungs clear to auscultation Cardiovascular: RRR, no murmur, no edema Gastrointestinal (Abdomen): normal bowel sounds, soft, nontender, no hepatosplenomegaly Neurologic: awake; no focal motor deficits Psychiatric: A+Ox3, euthymic affect Results & Data ([facility]) Vital Signs (Past 12 Hours) Vital Signs Temp Pulse Pulse Resp BP BP Pulse Ox 09/22/21 08:14 36.4 C L 62 18 147/72 H 95 09/22/21 08:00 36.7 C 67 18 156/63 H 96 09/22/21 05:41 36.9 C 68 20 155/61 H 94 09/22/21 05:00 75 16 154/80 H 95 09/22/21 04:31 64 16 133/79 96 09/22/21 03:00 69 16 164/94 H 93 Laboratory Results 09/22/21 09/22/21 09/22/21 Range/Units 03:30 01:54 00:51 WBC (4.8-10.8) K/uL RBC (4.2-5.4) M/uL Hgb (12.0-16.0) g/dL Hct (37-47) % MCV (80-100) fL MCH (25-34) pg MCHC (32-36) g/dL RDW Std Deviation (36.4-46.3) fL RDW Coeff of Marlon (11.5-14.5) % Plt Count (130-400) K/uL MPV (7.4-10.4) fL Immature Gran % (Auto) % Neut % (Auto) % Lymph % (Auto) % [place] % (Auto) % Eos % (Auto) % Baso % (Auto) % Neut # (Auto) (1.4-6.5) K/uL Lymph # (Auto) (1.2-3.4) K/uL [place] # (Auto) (0.11-0.59) K/uL Eos # (Auto) (0-0.5) K/uL Baso # (Auto) (0-0.2) K/uL Immature Gran # (Auto) (0.00-0.02) K/uL ESR (0-30) mm/hr Sodium 138 (136-145) mmol/L Potassium 4.4 TNP Chloride 105 (98-107) mmol/L Carbon Dioxide 26 (21-32) mmol/L Anion Gap 7 (3-11) BUN 24 H (6-23) mg/dl Creatinine 0.98 (0.6-1.2) mg/dl Est Cr Clr Drug Dosing 38.8 ml/min Est GFR ( Amer) 59.7 ml/min Est GFR (Non-Af Amer) 51.5 ml/min BUN/Creatinine Ratio 24.5 H (10-20) Glucose 128 H (70-99(Fasting)) mg/dl Calcium 9.5 (8.5-10.1) mg/dl Total Bilirubin 0.5 (0.2-1.0) mg/dl AST 15 TNP ALT 16 (7-52) U/L Alkaline Phosphatase 62 (34-104) U/L C-Reactive Protein 0.52 H (0-0.5) mg/dl Total Protein 7.2 (6.0-8.3) gm/dl Albumin 4.1 (3.4-5.0) gm/dl Globulin 3.1 (2.5-4.0) gm/dl Albumin/Globulin Ratio 1.3 (0.9-2) SARS-CoV-2, RNA, NAAT NEGATIVE (NEGATIVE) 09/22/21 09/22/21 Range/Units 00:51 00:51 WBC 10.32 (4.8-10.8) K/uL RBC 4.65 (4.2-5.4) M/uL Hgb 15.6 (12.0-16.0) g/dL Hct 44.8 (37-47) % MCV 96.3 (80-100) fL MCH 33.5 (25-34) pg MCHC 34.8 (32-36) g/dL RDW Std Deviation 44.0 (36.4-46.3) fL RDW Coeff of Marlon 12.6 (11.5-14.5) % Plt Count 178 (130-400) K/uL MPV 9.8 (7.4-10.4) fL Immature Gran % (Auto) 0.1 % Neut % (Auto) 61.3 % Lymph % (Auto) 27.3 % [place] % (Auto) 9.2 % Eos % (Auto) 1.9 % Baso % (Auto) 0.2 % Neut # (Auto) 6.32 (1.4-6.5) K/uL Lymph # (Auto) 2.82 (1.2-3.4) K/uL [place] # (Auto) 0.95 H (0.11-0.59) K/uL Eos # (Auto) 0.20 (0-0.5) K/uL Baso # (Auto) 0.02 (0-0.2) K/uL Immature Gran # (Auto) 0.01 (0.00-0.02) K/uL ESR 17 (0-30) mm/hr Sodium (136-145) mmol/L Potassium Chloride (98-107) mmol/L Carbon Dioxide (21-32) mmol/L Anion Gap (3-11) BUN (6-23) mg/dl Creatinine (0.6-1.2) mg/dl Est Cr Clr Drug Dosing ml/min Est GFR ( Amer) ml/min Est GFR (Non-Af Amer) ml/min BUN/Creatinine Ratio (10-20) Glucose (70-99(Fasting)) mg/dl Calcium (8.5-10.1) mg/dl Total Bilirubin (0.2-1.0) mg/dl AST ALT (7-52) U/L Alkaline Phosphatase (34-104) U/L C-Reactive Protein (0-0.5) mg/dl Total Protein (6.0-8.3) gm/dl Albumin (3.4-5.0) gm/dl Globulin (2.5-4.0) gm/dl Albumin/Globulin Ratio (0.9-2) SARS-CoV-2, RNA, NAAT (NEGATIVE) Diagnostic Findings CT hip RT wo con CLINICAL HISTORY: Right hip pain. No trauma. COMPARISON STUDY: CT of the abdomen pelvis January 2010. TECHNIQUE: Axial images of the right hip were obtained without IV contrast. Sagittal and coronal reconstructions were viewed. Automated exposure control was utilized for the study. A dose lowering technique was utilized adhering to the principles of ALARA. FINDINGS: Right hip arthroplasty is intact. No periprosthetic fracture or lucency is present. Postoperative appearance is similar to CT of January 11, 2010. Specifically, the more superior acetabular screw extends into the soft tissues of the right hemipelvis. Visualized portions of the right hemipelvis are unre markable. There is no right inguinal lymphadenopathy. No mass or fluid collection is identified on this examination. No suspicious osseous lesions are identified. 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 IMPRESSION: 1. Status post total right hip arthroplasty. No periprosthetic fracture or lucency. 2. No change in appearance of the right hip arthroplasty since CT of January 11, 2010. The more superior acetabular screw is unchanged in position and extends into the right hemipelvis
--- NOTE | 2021-09-22 15:28 | Discharge Summary ---
Date of Service September 22, 2021 Admission HPI Per Admitting Provider An 86-year-old female with past medical history significant for hyperlipidemia, peripheral vascular disease, hypertension, chronic kidney disease stage III, GERD, history of primary open angle glaucoma bilateral, history of polycythemia, paraproteinemia, history of kidney stones, history of postpolio syndrome, history of breast cancer, status post surgery and chemotherapy as per records who lives at the [facility], was brought in because of right hip pain. Right hip pain is going for last 2 to 3 days, it is only at the nighttime when she sleeps and in morning time she is able to walk with a walke r. Tonight it was very severe that is why she was brought into the hospital. Daughter is in the room. Minimal movement is causing lot of pain in the right hip. Imaging studies show possible loosening of the hardware, hemodynamically stable. Denies any other complaints. Denies any headache. No blurred visions, no earache, no runny nose, no sore throat, no cough, no nausea, no vomiting. Appetite is good. No difficulty swallowing. No chest pain, no shortness of breath, no abdominal pain, no neck pain. Normal bowel and bladder movements. Admission Exam Per Admitting Provider GENERAL: The patient is of moderate build, not in acute distress. VITAL SIGNS: Temperature 36.9, pulse 64, respiratory rate 16, blood pressure 133/79, oxygen 96% on 2 liters. HEENT: Pupils equal, round and reactive to light. Oral mucosa moist. NECK: No JVD, no neck masses. CARDIOVASCULAR: S1 and S2 heard. Regular rate and rhythm. No murmur, no gallop. RESPIRATORY SYSTEM: Normal AP diameter. No accessory muscle use. No wheezing, no crackles. ABDOMEN: Soft, bowel sounds are nontender, no distention. CENTRAL NERVOUS SYSTEM: Cranial nerves II through XII are grossly intact, nonfocal. EXTREMITIES: Bilateral lower extremity edema present. Painful movements of the right hip region. Principal Diagnosis Acute right hip pain Discharge Exam General: Sitting comfortably in chair, not in distress, on room air HEENT: EOMI, ABRNEY, MMM Chest: Clear breath sounds bilaterally, no wheezes or crackles CVS: Regular rate and rhythm, normal heart sounds, no murmur Abdomen: Soft, non tender, not distended, normal bowel sounds Neuro: Awake, alert, oriented, conversing well, non focal Extremities: No cyanosis, clubbing or edema Discharge Data Allergies Allergy/AdvReac Type Severity Reaction Status Date / Time Iodinated Contrast Media Allergy Intermediate UNKNOWN-MED Verified 09/22/21 00:31 LIST iodine Allergy Intermediate UNKNOWN--MED Verified 09/22/21 00:31 LIST shellfish derived Allergy Intermediate UNKNOWN--MED Verified 09/22/21 00:31 LIST Consultations 09/22/21 03:50 ED Decision to Admit Stat 09/22/21 08:00 Consult Orthopedic Surgery Routine 09/22/21 12:44 Consult General Surgery Routine Ordered Studies 09/22/21 00:40 CT hip RT wo con Urgent Hospital Course (1) Acute pain of right hip: 86 year old female from [facility] with bilateral hip replacement at [facility] more than 15-20 years ago presented to the ED overnight with severe acute right hip pain (see H&P for details). Patient was afebrile and stable, states pain controlled with iv pain medication. Xray hip and CT right hip showed significant protrusion of acetabular component screw deep into intraabdominal space (3.5 cm into intraabd cavity)- screw does not appear to be in any bone and unchanged from prior CT 2009. Seen by orthopedics who was concerned about the screw to be the cause of pain and highly recommended revision of her total hip arthroplasty with removal of intra abdominal screw- also stated she might need general surgery evaluation to ensure no intraabdominal organ damage and recommended transfer to [facility]. Patient was seen by surgery and stated the screw within the soft tissues and not in intraabdominal cavity and not at risk of visceral injury currently. Spoke with Dr Wiggins from [facility] who recommended admission by medicine team due to her age. Spoke with Dr Cespedes regarding the case for transfer. Dr Charles Crump from our orthopedic team spoke to him too. Patient was accepted for transfer to [facility] for further evaluation by orthopedics. Patient is comfortable and stable for transfer. Spoke to patient and family at bedside and answered all questions. Total Time Total Time Spent Total Time Spent (In Minutes): More than 60 minutes including face to face communication with patient and family, discussion with orthopedic, surgery, transfer center and physicians at [facility] Discharge Plan Discharge Items Patient Disposition: Transfer Acute Care Hospital Reason For Visit: HIP PAIN Discharge Diagnosis: Right hip pain Activity: Per Instructions section Non-emergency contact: Primary Care Provider Call non-emergency contact if: you have any medication questions Follow-up/Referrals: [facility] [Primary Care Provider] - Diet: Regular Addtl Attending Provider Instructions: This is the inpatient medication list that patient was getting here and recommended continuing. Current Inpatient Medications Acetaminophen (Acetaminophen 325 Mg Tab) 650 mg PO Q4H PRN PRN Reason: pain/fever Stop: 10/22/21 05:39 Albuterol (Albuterol Hfa 8 Gm Inhaler) 2 puffs INH Q4 PRN PRN Reason: cough or sob Stop: 10/22/21 05:39 Amlodipine Besylate (Amlodipine Besylate 5 Mg Tab) 10 mg PO DAILY [facility] Stop: 10/22/21 08:59 Last Admin: 09/22/21 08:15 Dose: 10 mg Documented by: Benzonatate (Benzonatate 100 Mg Capsule) 200 mg PO TID PRN PRN Reason: Cough Stop: 10/22/21 05:39 Dextromethorphan Polymer Complex (Dextromethorphan Polymr Complx 30 Mg/5 Ml Udp) 30 mg PO QID PRN PRN Reason: Cough Stop: 10/22/21 06:29 Docusate Sodium (Docusate Sodium 100 Mg Cap) 100 mg PO BID [facility] Stop: 10/22/21 08:59 Last Admin: 09/22/21 08:16 Dose: 100 mg Documented by: Dorzolamide/Timolol (Dorzolamide/Timolol 22.3/6.8mg/Ml 10 Ml Btl) 1 drops OPR BID [facility] Stop: 10/22/21 08:59 Last Admin: 09/22/21 08:16 Dose: 1 drops Documented by: Hydromorphone HCl (Hydromorphone Inj 0.5 Mg/0.5 Ml Syr) 0.5 mg IV Q4H PRN PRN Reason: Pain Stop: 10/06/21 05:11 Dextrose/Sodium Chloride (D5w And Nss) 1,000 mls @ 80 mls/hr IV .[id number] [facility] Stop: 10/22/21 05:39 Last Admin: 09/22/21 06:37 Dose: 80 mls/hr Documented by: Latanoprost (Latanoprost 0.005% Op Soln 2.5 Ml Btl) 1 drops OPR HS [facility] Stop: 10/22/21 20:59 Losartan Potassium (Losartan Potassium 25 Mg Tab) 25 mg PO DAILY [facility] Stop: 10/22/21 08:59 Last Admin: 09/22/21 08:15 Dose: 25 mg Documented by: Magnesium Hydroxide (Magnesium Hydroxide Susp 30 Ml Udc) 30 ml PO DAILY PRN PRN Reason: Constipation Stop: 10/22/21 05:39 Metoprolol Tartrate (Metoprolol Tartrate 100 Mg Tab) 100 mg PO BID [facility] Stop: 10/22/21 08:59 Last Admin: 09/22/21 08:15 Dose: 100 mg Documented by: Miscellaneous (Netarsudil [Rhopressa]: Order Awaiting Action) 1 ea N/A QS [facility] Stop: 10/22/21 07:59 Last Admin: 09/22/21 08:14 Dose: Not Given Documented by: Multivitamins/Minerals (Cerovite Adv Formula Tab) 1 tab PO DAILY [facility] Stop: 10/22/21 08:59 Last Admin: 09/22/21 08:16 Dose: 1 tab Documented by: Ondansetron HCl (Ondansetron Inj 2 Mg/Ml 2 Ml Vial) 4 mg IV Q6H PRN PRN Reason: Nausea Stop: 10/22/21 05:39 Oxycodone HCl (Oxycodone Hcl Ir 5 Mg Tab (Immediate Release)) 5 mg PO Q4H PRN PRN Reason: Pain Stop: 10/06/21 05:11 Last Admin: 09/22/21 05:20 Dose: 5 mg Documented by: Pantoprazole Sodium (Pantoprazole 40 Mg Tab) 40 mg PO HS [facility] Stop: 10/22/21 20:59 Polyethylene Glycol (Polyethylene (Miralax) 17 Gm Pack) 17 gm PO DAILY PRN PRN Reason: Constipation Stop: 10/22/21 05:39 Pravastatin Sodium (Pravastatin Sod 20 Mg Tab) 20 mg PO [facility] Stop: 10/22/21 20:59 Date of Service: September 22, 2021 Pending Studies at Discharge: No Stand-Alone Forms: [facility] Skilled Items Patient informed of condition?: Yes DNR: No Discharge Level of Care: Other Communicable Disease: No Discharge Prognosis: Stable Lines: Peripheral IV Urinary Catheter: No Medications and DC Order Prescriptions: Continued latanoprost 0.005 % Drops 1 drp OPR HS RF: 0 metoprolol tartrate 100 mg Tablet 100 mg PO BID RF: 0 magnesium hydroxide [Milk of Magnesia] 400 mg/5 mL Suspension 30 ml PO DAILY PRN (Reason: Constipation) RF: 0 amlodipine 10 mg Tablet 10 mg PO DAILY RF: 0 docusate sodium 100 mg Capsule 100 mg PO BID RF: 0 omeprazole 20 mg Capsule,Delayed Release(Dr/Ec) 20 mg PO HS RF: 0 dorzolamide-timolol 22.3-6.8 mg/mL Drops 1 drp OPR BID RF: 0 pravastatin 20 mg Tablet 20 mg PO HS RF: 0 Rhopressa 0.02 % Drops 1 drp OPR PM RF: 0 benzonatate 200 mg Capsule 200 mg PO TID PRN (Reason: Cough) RF: 0 losartan 25 mg tablet 25 mg PO DAILY RF: 0 albuterol sulfate 90 mcg/actuation HFA aerosol inhaler 2 puff INHALATION Q4 PRN (Reason: cough or sob) RF: 0 acetaminophen [Acetaminophen Extra Strength] 500 mg Tablet 1,000 mg PO Q8 MDD 3g PRN (Reason: Pain, Severe) RF: 0 Delsym 30 mg/5 mL Liquid 30 mg PO QID PRN (Reason: Cough) RF: 0 Multivitamin Gummies 200 mcg Tablet,Chewable 2 tab PO DAILY RF: 0 Discharge Orders: Discharge Order (Routine); Ordered 09/22/21 Ordered By: Kehinde Engel Admission Data Admit Date/Time: 09/22/21 04:52 Attending Provider: Kehinde Engel Admit Provider: Samuel Campos Primary Care Provider: [facility] [employer] Other Providers: Samuel Campos ; Saul Plasencia ; Owen Tovar ; Ruddy Tompkins ; Sosa Craig ; Cara Castellanos ; Ayad Nathan ; Andrew Clinton ; Claudia Jansen ; Lani Vargas ; Richard Diaz Jr ; Jolanta Willoughby ; Nelson Haque ; Nelida Sousa
[2021-09-22] MEDS ORDERED: PRAVASTATIN SOD 20 MG TAB PO SCH (21:00)
[2021-09-22] MEDS ORDERED: LATANOPROST 0.005% OP SOLN 2.5 ML BTL OPR SCH (21:00)
[2021-09-22] MEDS ORDERED: PANTOprazole 40 MG TAB PO SCH (21:00)
--- NOTE | 2021-09-27 03:19 | Coding Query ---
Unable to determine the etiology of pain CODING QUERY To promote full compliance with coding requirements relating to patient care, provider participation is requested in all cases of computer language coder uncertainty. Please assist us with the question(s) below: Coding Question(s): Patient admitted with acute right hip pain . screw does not appear to be in any bone and unchanged from prior CT 2009- Discharge Summary dated 09/22/2021 orthopedics was concerned about the screw to be the cause of pain - Discharge Summary dated 09/22/[address] right hip showed significant protrusion of acetabular component screw deep into intraabdominal space-Discharge Summary-09/22/21 Acute right hip pain- Discharge Summary dated 09/22/2021 Based on the above clinical documentation, Please further clarify the etiology of the right hip pain A) Pain due to acetabular component screw B) Any other specified condition (Please specify) C) Unable to determine Physician's Response(s): Thank you Deng Garcia Principal Diagnosis: "that condition established after study, to be chiefly responsible for occasioning the admission of the patient to the hospital for care." Co-Existing Principal Diagnosis: "when two or more diagnoses equally meet the criteria for principal diagnosis as determined by the circumstances of admission, diagnostic work up, and/or therapy provided, and the Alphabetic Index, Tabular List, or another coding guideline does not provide sequencing direction, any one of the diagnoses may be sequenced first." "When the physician has documented what appears to be a current diagnosis in the body of the record, but has not included the diagnosis in the final diagnostic statement, the physician should be asked whether the diagnosis should be added." (Source Coding [facility] 2 QTR90. p3-4) [facility]
== END 2021-09-22 19:44 | disposition short-term general hospital (02) | DRG 556 ==
LOC: ED 23:53 → 3N 09-22 04:52
DX: Z87.442 Personal history of urinary calculi; I12.9 Hypertensive chronic kidney disease with stage 1 through stage 4 chronic kidney disease, or unspecified chronic kidney disease; I73.9 Peripheral vascular disease, unspecified; Z92.21 Personal history of antineoplastic chemotherapy; H40.1132 Primary open-angle glaucoma, bilateral, moderate stage; Z85.3 Personal history of malignant neoplasm of breast; E78.00 Pure hypercholesterolemia, unspecified; Z91.041 Radiographic dye allergy status; N18.30 Chronic kidney disease, stage 3 unspecified; Z90.13 Acquired absence of bilateral breasts and nipples; K21.9 Gastro-esophageal reflux disease without esophagitis; Z96.643 Presence of artificial hip joint, bilateral; Z98.42 Cataract extraction status, left eye; Z91.013 Allergy to seafood; M25.551 Pain in right hip; Z86.12 Personal history of poliomyelitis; Z98.41 Cataract extraction status, right eye; E78.5 Hyperlipidemia, unspecified